=== PATIENT | male | born 1975 | race Hispanic/Latino ===

== ENCOUNTER 2017-05-10 02:19 | Observation (INO) | payer MEDICAID ==
[~2017-05-10] VITALS: Ht 177.8 cm; Wt 88.5 kg
[2017-05-10] MEDS ORDERED: ASPIRIN 325 MG TABLET ONE ×2 (02:38→08:12)
[2017-05-10 02:43] LABS: BASOPHILS % (AUTO) 0.6 % (0.0-5.0); EOSINOPHILS % (AUTO) 0.1 % (0.0-8.0); HEMATOCRIT 48.7 % (42-54); MEAN CORPUSCULAR HEMOGLOBIN 30.7 pg (27.0-33.0); MEAN CORPUSCULAR HGB CONC 33.5 g/dL (32.0-36.0); MEAN CORPUSCULAR VOLUME 91.6 fL (79-99); MONOCYTES % (AUTO) 4.8 % (3.0-13.0); NEUTROPHILS % (AUTO) 72.5 % (40.0-77.0); NUCLEATED RED BLOOD CELLS 0.1 % (0.0-0.19); PLATELET COUNT (AUTO) 269 K/uL (130-400); RED BLOOD CELL COUNT(AUTO) 5.31 MIL/uL (4.50-6.20); RED CELL DISTRIBUTION WIDTH 13.4 % (11.0-15.5); WHITE BLOOD COUNT (AUTO) 11.4 K/uL (4.8-10.8)
[2017-05-10 02:53] LABS: INR 1.01 (0.85-1.15); PARTIAL THROMBOPLASTIN TIME 27.9 SEC (26.3-35.5); PROTHROMBIN TIME 10.6 SEC (9.6-11.6)
[2017-05-10] MEDS ORDERED: NITROGLYCERIN 0.4 MG SL TAB SL ONE (03:02)
[2017-05-10] MEDS ORDERED: ONDANSETRON HCL 4 MG/2 ML VIAL ONE (03:02)
[2017-05-10] MEDS ORDERED: MORPHINE SULFATE 4 MG/1ML SYG ONE ×2 (03:03→05:01)
[2017-05-10 03:08] LABS: CREATININE 0.9 mg/dL (0.5-1.5); POTASSIUM 3.4 mmol/L (3.5-5.1)
[2017-05-10] MEDS ORDERED: ALBUTEROL SULFATE 0.083% 2.5 MG/3 ML INH IH ONE (03:20)
[2017-05-10 03:35] LABS: ALBUMIN 3.8 g/dL (3.5-5.0); BILIRUBIN,TOTAL 0.5 mg/dL (0.2-1.0); CREATINE KINASE MB 0.9 ng/mL (0.5-3.6); TOTAL PROTEIN, SERUM 7.6 g/dL (6.0-8.3)
[2017-05-10] MEDS ORDERED: POTASSIUM CHLORIDE 20MEQ/100ML 100 ML IV PRN (07:00)
[2017-05-10] MEDS ORDERED: LIDOCAINE HCL-MPF 1% 2ML VIAL IVP PRN (07:00)
[2017-05-10] MEDS: NITROGLYCERIN 1GM/1 INCH PACKET TD SCH ×3 (07:00→22:30)
[2017-05-10] MEDS ORDERED: POTASSIUM CHLORIDE 10% ELIXIR 20 MEQ/15 ML UDCUP PO PRN (07:00)
[2017-05-10] MEDS ORDERED: ACETAMINOPHEN 325 MG TAB PO PRN (07:00)
[2017-05-10] MEDS ORDERED: ONDANSETRON HCL 4 MG/2 ML VIAL IVP PRN (07:00)
[2017-05-10] MEDS ORDERED: IPRATROPIUM/ALBUTEROL SULFATE 3 ML SOLUTION IH PRN (07:00)
[2017-05-10] MEDS ORDERED: NITROGLYCERIN 1GM/1 INCH PACKET TD ONE (08:12)
[2017-05-10] MEDS: ASPIRIN 325 MG TABLET PO SCH (09:00)
[2017-05-10] MEDS: FAMOTIDINE 20MG TAB 20 MG TAB PO SCH ×2 (09:00→19:33)
[2017-05-10] MEDS ORDERED: MORPHINE SULFATE 2 MG/ML 1ML SYG ONE (10:57)
[2017-05-10 11:56] LABS: CREATINE KINASE MB 0.6 ng/mL (0.5-3.6); CREATINE KINASE, TOTAL 74 U/L (21-232); MYOGLOBIN 42 ng/mL (10-92); TROPONIN I < 0.04 ng/mL (0.00-0.06)
[2017-05-10] MEDS ORDERED: LORAZEPAM 0.5 MG TABLET PO PRN (13:15)
[2017-05-10 16:00] VITALS: BP 95/56
[2017-05-10 16:10] LABS: CHOLESTEROL 161 mg/dL (<200); HDL CHOLESTEROL 37 mg/dL (29-71); LDL DIRECT 111 mg/dL (0-99); TRIGLYCERIDES 218 mg/dL (30-200)
[2017-05-10] MEDS: MORPHINE SULFATE 2 MG/ML 1ML SYG IVP PRN ×2 (16:33→22:31)
[2017-05-10] MEDS ORDERED: SODIUM CHLORIDE 0.9% 10 ML VIAL IVP PRN (16:45)
[2017-05-10 19:00] VITALS: BP 109/64
[2017-05-10] MEDS: POTASSIUM CHLORIDE 20 MEQ ERTAB PO PRN ×2 (19:34→22:48)
[2017-05-11] VITALS: BP 100/54
[2017-05-11 04:00] VITALS: BP 97/49
[2017-05-11] MEDS: MORPHINE SULFATE 2 MG/ML 1ML SYG IVP PRN ×2 (04:50→10:06)
[2017-05-11 06:10] VITALS: BP 80/54
[2017-05-11 06:29] VITALS: BP 106/53
[2017-05-11] MEDS: NITROGLYCERIN 1GM/1 INCH PACKET TD SCH (06:31)
[2017-05-11 08:00] VITALS: BP 104/54
[2017-05-11] MEDS: FAMOTIDINE 20MG TAB 20 MG TAB PO SCH (10:06)
[2017-05-11] MEDS: ASPIRIN 325 MG TABLET PO SCH (10:06)
== END 2017-05-11 11:30 | disposition home or self-care (01) ==
LOC: EDH 02:19 → EDHIP 02:20 → 3BH 14:57
PROVIDERS: ADMIT Family Medicine; ATTEND Family Medicine
DX: I25.110 Atherosclerotic heart disease of native coronary artery with unstable angina pectoris (principal); I13.0 Hypertensive heart and chronic kidney disease with heart failure and stage 1 through stage 4 chronic kidney disease, or unspecified chronic kidney disease; I50.9 Heart failure, unspecified; N18.9 Chronic kidney disease, unspecified; E78.5 Hyperlipidemia, unspecified; G89.4 Chronic pain syndrome; I25.2 Old myocardial infarction; I42.9 Cardiomyopathy, unspecified; J96.10 Chronic respiratory failure, unspecified whether with hypoxia or hypercapnia; Z99.81 Dependence on supplemental oxygen; F17.210 Nicotine dependence, cigarettes, uncomplicated
CPT/HCPCS: 36415 ×2; 71010 ×2; 80048; 80053; 80061; 82550 ×2; 82553 ×2; 83874 ×2; 84484 ×3; 85025 ×2; 85610; 85730; 93005 ×2; 93306; 94640; 94664; 96374; 96376 ×2; 99285; 99291; G0378 ×33; J2270 ×2; J2405

== ENCOUNTER 2018-03-18 08:44 | Emergency (ER) | payer MEDICAID ==
[2018-03-18] MEDS ORDERED: LIDOCAINE HCL MPF 1% 5ML VIAL ONE (09:06)
[2018-03-18] MEDS ORDERED: KETOROLAC TROMETHAMINE 30MG/ML ONE (09:11)
== END 2018-03-18 09:38 | disposition home or self-care (01) ==
LOC: EDH 08:44
DX: K02.9 Dental caries, unspecified (principal); I25.10 Atherosclerotic heart disease of native coronary artery without angina pectoris; I50.9 Heart failure, unspecified; Z72.0 Tobacco use
CPT/HCPCS: 64400; 96372; 99284; J1885; J3490

== ENCOUNTER 2018-12-17 23:14 | Emergency (ER) | payer MEDICAID ==
[2018-12-17] MEDS ORDERED: SULFAMETHOX-TMP DS 800/160 TAB ONE (23:53)
[2018-12-17] MEDS ORDERED: KETOROLAC TROMETHAMINE 60 MG/2 ML VIAL ONE (23:53)
== END 2018-12-18 00:18 | disposition home or self-care (01) ==
LOC: EDH 23:14
DX: S81.831A Puncture wound without foreign body, right lower leg, initial encounter (principal); I50.9 Heart failure, unspecified; I25.10 Atherosclerotic heart disease of native coronary artery without angina pectoris; Z72.0 Tobacco use; W45.8XXA Other foreign body or object entering through skin, initial encounter; Y93.39 Activity, other involving climbing, rappelling and jumping off; Y92.098 Other place in other non-institutional residence as the place of occurrence of the external cause; Y99.8 Other external cause status
CPT/HCPCS: 73590; 96372; 99284; J1885

== ENCOUNTER 2018-12-22 21:13 | Emergency (ER) | payer MEDICAID ==
[2018-12-22 22:33] LABS: BASOPHILS % (AUTO) 0.5 % (0.0-5.0); EOSINOPHILS % (AUTO) 0.7 % (0.0-8.0); HEMATOCRIT 47.1 % (42-54); LYMPHOCYTES % (AUTO) 22.2 % (21.0-51.0); MEAN CORPUSCULAR HEMOGLOBIN 31.5 pg (27.0-33.0); MEAN CORPUSCULAR HGB CONC 33.9 g/dL (32.0-36.0); MEAN CORPUSCULAR VOLUME 92.7 fL (79-99); MONOCYTES % (AUTO) 7.5 % (3.0-13.0); NEUTROPHILS % (AUTO) 69.1 % (40.0-77.0); NUCLEATED RED BLOOD CELLS 0.1 % (0.0-0.19); PLATELET COUNT (AUTO) 246 K/uL (130-400); RED BLOOD CELL COUNT(AUTO) 5.09 MIL/uL (4.50-6.20); RED CELL DISTRIBUTION WIDTH 12.8 % (11.0-15.5); WHITE BLOOD COUNT (AUTO) 10.7 K/uL (4.8-10.8)
[2018-12-22 22:48] LABS: CREATININE 1.2 mg/dL (0.5-1.5); POTASSIUM 3.8 mmol/L (3.5-5.1)
[2018-12-22] MEDS ORDERED: KETOROLAC TROMETHAMINE 30MG/ML ONE (23:00)
[2018-12-22] MEDS ORDERED: CEFTRIAXONE SODIUM 1 GM ONE (23:00)
== END 2018-12-22 23:54 | disposition home or self-care (01) ==
LOC: EDH 21:13
DX: L03.115 Cellulitis of right lower limb (principal); I25.10 Atherosclerotic heart disease of native coronary artery without angina pectoris; I50.9 Heart failure, unspecified; Z72.0 Tobacco use
CPT/HCPCS: 36415; 73590; 80048; 83605; 85025; 87040; 96374; 96375; 99285; J0696; J1885

== ENCOUNTER 2019-02-08 18:10 | Emergency (ER) | payer MEDICAID ==
[2019-02-08] MEDS ORDERED: KETOROLAC TROMETHAMINE 15MG/ML ONE (18:27)
[2019-02-08] MEDS ORDERED: CLINDAMYCIN 600 MG/D5% WATER 50 ML IV ONE (18:27)
[2019-02-08 18:51] LABS: BASOPHILS % (AUTO) 0.6 % (0.0-5.0); EOSINOPHILS % (AUTO) 1.4 % (0.0-8.0); HEMATOCRIT 45.6 % (42-54); LYMPHOCYTES % (AUTO) 20.1 % (21.0-51.0); MEAN CORPUSCULAR HEMOGLOBIN 31.1 pg (27.0-33.0); MEAN CORPUSCULAR HGB CONC 34.2 g/dL (32.0-36.0); MONOCYTES % (AUTO) 5.3 % (3.0-13.0); NEUTROPHILS % (AUTO) 72.6 % (40.0-77.0); PLATELET COUNT (AUTO) 212 K/uL (130-400); RED BLOOD CELL COUNT(AUTO) 5.01 MIL/uL (4.50-6.20); WHITE BLOOD COUNT (AUTO) 11.2 K/uL (4.8-10.8)
[2019-02-08 19:06] LABS: CREATININE 1.1 mg/dL (0.5-1.5); POTASSIUM 3.6 mmol/L (3.5-5.1)
[2019-02-08 19:10] LABS: ALBUMIN 3.4 g/dL (3.5-5.0); BILIRUBIN,TOTAL 0.3 mg/dL (0.2-1.0); CRP QUANTITATIVE 30.5 mg/L (0.00-9.0); TOTAL PROTEIN, SERUM 6.7 g/dL (6.0-8.3)
[2019-02-08 19:58] LABS: ERYTHROCYTE SEDIMENTATION RATE 3 MM/HR (0-15)
== END 2019-02-08 20:10 | disposition home or self-care (01) ==
LOC: EDH 18:10
DX: M70.22 Olecranon bursitis, left elbow (principal); I25.10 Atherosclerotic heart disease of native coronary artery without angina pectoris; I50.9 Heart failure, unspecified; Z72.0 Tobacco use; Z88.8 Allergy status to other drugs, medicaments and biological substances
CPT/HCPCS: 36415; 73070; 80053; 84550; 85025; 85651; 86140; 96365; 96375; 99285; J1885; J3490

== ENCOUNTER 2019-04-24 09:55 | Emergency (ER) | payer MEDICAID ==
[2019-04-24] MEDS ORDERED: FLUORESCEIN SODIUM 1 STRIP STRIP ONE (10:01)
[2019-04-24] MEDS ORDERED: TETRACAINE HCL 0.5% 4 ML OPHTH SOLN ONE (10:02)
[2019-04-24] MEDS ORDERED: NA BORATE/BORIC AC/H2O/NACL 120 ML OPHTH IRRIG SOLN ONE (10:02)
[2019-04-24] MEDS ORDERED: ERYTHROMYCIN BASE 0.5% OPHTH OINT 1 GM TUBE ONE (10:40)
[2019-04-24] MEDS ORDERED: TRAMADOL HCL 50 MG TABLET ONE (10:41)
== END 2019-04-24 10:49 | disposition home or self-care (01) ==
LOC: EDH 09:55
DX: S05.02XA Injury of conjunctiva and corneal abrasion without foreign body, left eye, initial encounter (principal); I25.810 Atherosclerosis of coronary artery bypass graft(s) without angina pectoris; I50.9 Heart failure, unspecified; Z72.0 Tobacco use; X58.XXXA Exposure to other specified factors, initial encounter; Y93.89 Activity, other specified; Y92.89 Other specified places as the place of occurrence of the external cause; Y99.8 Other external cause status

== ENCOUNTER 2019-08-07 23:57 | Emergency (ER) | payer MEDICAID ==
[2019-08-08 00:37] LABS: CREATININE 1.2 mg/dL (0.5-1.5); POTASSIUM 3.2 mmol/L (3.5-5.1)
[2019-08-08 00:39] LABS: INR 0.97 (0.85-1.15); PARTIAL THROMBOPLASTIN TIME 27.5 SEC (26.3-35.5); PROTHROMBIN TIME 10.5 SEC (9.6-11.6)
[2019-08-08 00:41] LABS: ALBUMIN 3.4 g/dL (3.5-5.0); BILIRUBIN,TOTAL 0.3 mg/dL (0.2-1.0); TOTAL PROTEIN, SERUM 6.9 g/dL (6.0-8.3)
[2019-08-08 00:49] LABS: BASOPHILS % (AUTO) 0.3 % (0.0-5.0); EOSINOPHILS % (AUTO) 0.5 % (0.0-8.0); HEMATOCRIT 43.2 % (42-54); LYMPHOCYTES % (AUTO) 25.8 % (21.0-51.0); MEAN CORPUSCULAR HEMOGLOBIN 31.4 pg (27.0-33.0); MEAN CORPUSCULAR HGB CONC 34.7 g/dL (32.0-36.0); MEAN CORPUSCULAR VOLUME 90.6 fL (79-99); MONOCYTES % (AUTO) 4.6 % (3.0-13.0); NEUTROPHILS % (AUTO) 68.6 % (40.0-77.0); PLATELET COUNT (AUTO) 224 K/uL (130-400); RED BLOOD CELL COUNT(AUTO) 4.77 MIL/uL (4.50-6.20); WHITE BLOOD COUNT (AUTO) 9.4 K/uL (4.8-10.8)
[2019-08-08 00:55] LABS: ABG BASE EXCESS -3.1 mmol/L (-2.0-3.0); ABG HCO3 21.6 mmol/L (21.0-28.0); ABG OXYGEN SATURATION 94.2 % (95.0-99.0); ABG PCO2 38 mmHg (35-48)
[2019-08-08 00:56] LABS: B-TYPE NATRIURETIC PEPTIDE 12 pg/mL (0-100)
[2019-08-08] MEDS ORDERED: ACETAMINOPHEN EXTRA STRENGTH 500 MG TABLET ONE (01:34)
[2019-08-08] MEDS ORDERED: POTASSIUM CHLORIDE 20 MEQ ERTAB PO ONE (01:34)
== END 2019-08-08 04:05 | disposition home or self-care (01) ==
LOC: EDH 23:57
DX: M54.5 Low back pain (principal); R07.89 Other chest pain; R09.02 Hypoxemia; I50.9 Heart failure, unspecified; I25.10 Atherosclerotic heart disease of native coronary artery without angina pectoris; Q24.9 Congenital malformation of heart, unspecified; Z72.0 Tobacco use
CPT/HCPCS: 36415; 36600; 71046; 80053; 82550; 82803; 83690; 83880; 84484; 85025; 85610; 85730; 93005

== ENCOUNTER 2019-09-22 16:34 | Emergency (ER) | payer MEDICAID ==
[2019-09-22] MEDS ORDERED: ONDANSETRON ODT 4 MG TAB ONE (17:04)
[2019-09-22] MEDS ORDERED: HYDROCODONE/ACETAMINOPHEN 10/325 MG TAB ONE (17:04)
== END 2019-09-22 18:21 | disposition home or self-care (01) ==
LOC: EDH 16:34
DX: S53.402A Unspecified sprain of left elbow, initial encounter (principal); S40.022A Contusion of left upper arm, initial encounter; I25.10 Atherosclerotic heart disease of native coronary artery without angina pectoris; I50.9 Heart failure, unspecified; Z88.8 Allergy status to other drugs, medicaments and biological substances; Z72.0 Tobacco use; W13.2XXA Fall from, out of or through roof, initial encounter; Y93.89 Activity, other specified; Y92.098 Other place in other non-institutional residence as the place of occurrence of the external cause; Y99.8 Other external cause status
CPT/HCPCS: 71045; 73060; 73070; 73090; 73130

== ENCOUNTER 2019-10-05 10:47 | Emergency (ER) | payer MEDICAID ==
[2019-10-05 11:32] LABS: BASOPHILS % (AUTO) 0.3 % (0.0-5.0); EOSINOPHILS % (AUTO) 0.5 % (0.0-8.0); HEMATOCRIT 49.9 % (42-54); LYMPHOCYTES % (AUTO) 10.5 % (21.0-51.0); MEAN CORPUSCULAR HEMOGLOBIN 31.1 pg (27.0-33.0); MEAN CORPUSCULAR HGB CONC 33.9 g/dL (32.0-36.0); MEAN CORPUSCULAR VOLUME 91.7 fL (79-99); MONOCYTES % (AUTO) 2.9 % (3.0-13.0); NEUTROPHILS % (AUTO) 85.5 % (40.0-77.0); PLATELET COUNT (AUTO) 243 K/uL (130-400); RED BLOOD CELL COUNT(AUTO) 5.44 MIL/uL (4.50-6.20); RED CELL DISTRIBUTION WIDTH 12.7 % (11.0-15.5); WHITE BLOOD COUNT (AUTO) 14.3 K/uL (4.8-10.8)
[2019-10-05 11:47] LABS: CREATININE 1.1 mg/dL (0.5-1.5)
[2019-10-05 11:51] LABS: ALBUMIN 3.7 g/dL (3.5-5.0); BILIRUBIN,TOTAL 0.5 mg/dL (0.2-1.0); TOTAL PROTEIN, SERUM 7.5 g/dL (6.0-8.3)
[2019-10-05 11:53] LABS: ABG BASE EXCESS -1.4 mmol/L (-2.0-3.0); ABG HCO3 22.3 mmol/L (21.0-28.0); ABG OXYGEN SATURATION 95.5 % (95.0-99.0); ABG PCO2 35 mmHg (35-48)
[2019-10-05 12:21] LABS: B-TYPE NATRIURETIC PEPTIDE 20 pg/mL (0-100)
[2019-10-05] MEDS ORDERED: ACETAMINOPHEN EXTRA STRENGTH 500 MG TABLET ONE (13:12)
== END 2019-10-05 14:35 | disposition left against medical advice (07) ==
LOC: EDH 10:47
DX: G89.29 Other chronic pain (principal); M79.602 Pain in left arm; I24.8 Other forms of acute ischemic heart disease; I25.10 Atherosclerotic heart disease of native coronary artery without angina pectoris; J44.9 Chronic obstructive pulmonary disease, unspecified; Z88.8 Allergy status to other drugs, medicaments and biological substances
CPT/HCPCS: 36415; 36600; 71045; 80053; 82550; 82803; 83880; 84484; 85025; 93005

== ENCOUNTER 2020-05-06 15:48 | Emergency (ER) | payer MEDICAID ==
[2020-05-06] MEDS ORDERED: HYDROCODONE/ACETAMINOPHEN 10/325 MG TAB ONE (16:03)
== END 2020-05-06 17:46 | disposition home or self-care (01) ==
LOC: EDH 15:48
DX: M54.5 Low back pain (principal); I25.10 Atherosclerotic heart disease of native coronary artery without angina pectoris; I50.9 Heart failure, unspecified; Z72.0 Tobacco use; Z88.8 Allergy status to other drugs, medicaments and biological substances
CPT/HCPCS: 72100

== ENCOUNTER 2021-02-03 09:09 | Emergency (ER) | payer MEDICAID ==
[~2021-02-03] VITALS: Ht 175.3 cm; Wt 77.1 kg
[2021-02-03 09:48] LABS: BASOPHILS % (AUTO) 0.3 % (0.0-5.0); EOSINOPHILS % (AUTO) 0.4 % (0.0-8.0); HEMATOCRIT 44.5 % (42-54); LYMPHOCYTES % (AUTO) 13.4 % (21.0-51.0); MEAN CORPUSCULAR HGB CONC 34.4 g/dL (32.0-36.0); MEAN CORPUSCULAR VOLUME 90.3 fL (79-99); MONOCYTES % (AUTO) 4.9 % (3.0-13.0); NEUTROPHILS % (AUTO) 80.6 % (40.0-77.0); PLATELET COUNT (AUTO) 239 K/uL (130-400); RED BLOOD CELL COUNT(AUTO) 4.93 MIL/uL (4.50-6.20); RED CELL DISTRIBUTION WIDTH 12.7 % (11.0-15.5); WHITE BLOOD COUNT (AUTO) 14.6 K/uL (4.8-10.8)
[2021-02-03 09:59] LABS: ABG BASE EXCESS -1.7 mmol/L (-2.0-3.0); ABG OXYGEN SATURATION 88.6 % (95.0-99.0); ABG PCO2 35 mmHg (35-48)
[2021-02-03] MEDS ORDERED: ACETAMINOPHEN 500 MG TABLET ONE (10:03)
[2021-02-03 10:28] LABS: ALBUMIN 3.1 g/dL (3.5-5.0); B-TYPE NATRIURETIC PEPTIDE 25 pg/mL (0-100); BILIRUBIN,TOTAL 0.4 mg/dL (0.2-1.0); CREATININE 0.9 mg/dL (0.5-1.5); POTASSIUM 3.2 mmol/L (3.5-5.1); TOTAL PROTEIN, SERUM 7.2 g/dL (6.0-8.3)
[2021-02-03 11:00] VITALS: BP 106/65
== END 2021-02-03 11:24 | disposition left against medical advice (07) ==
LOC: EDH 09:09
DX: I42.9 Cardiomyopathy, unspecified (principal); R09.02 Hypoxemia; R51.9 Headache, unspecified; Z20.822 Contact with and (suspected) exposure to COVID-19
CPT/HCPCS: 36415; 36600; 71045; 80053; 82550; 82803; 83880; 84484; 85025; 87040 ×2; 87635; 93005; 99285; C9803

== ENCOUNTER 2022-01-13 20:49 | Emergency (ER) | payer MEDICAID ==
[~2022-01-13] VITALS: Ht 177.8 cm; Wt 81.2 kg
[2022-01-13] MEDS ORDERED: MORPHINE 4 MG SYG ONE (21:05)
[2022-01-13 21:29] LABS: BASOPHILS % (AUTO) 0.3 % (0.0-5.0); EOSINOPHILS % (AUTO) 0.1 % (0.0-8.0); HEMATOCRIT 46.7 % (42-54); LYMPHOCYTES % (AUTO) 9.6 % (21.0-51.0); MEAN CORPUSCULAR HEMOGLOBIN 30.5 pg (27.0-33.0); MEAN CORPUSCULAR HGB CONC 34.3 g/dL (32.0-36.0); MEAN CORPUSCULAR VOLUME 89.1 fL (79-99); MONOCYTES % (AUTO) 4.9 % (3.0-13.0); NEUTROPHILS % (AUTO) 84.6 % (40.0-77.0); PLATELET COUNT (AUTO) 242 K/uL (130-400); RED BLOOD CELL COUNT(AUTO) 5.24 MIL/uL (4.50-6.20); RED CELL DISTRIBUTION WIDTH 12.5 % (11.0-15.5); WHITE BLOOD COUNT (AUTO) 18.7 K/uL (4.8-10.8)
[2022-01-13 21:30] LABS: APPEARANCE,URINE CLOUDY (CLEAR); BILIRUBIN,URINE SMALL (NEGATIVE); COLOR,URINE YELLOW (YELLOW); GLUCOSE, URINE (UA) NEGATIVE (NEGATIVE); KETONES,URINE NEGATIVE (NEGATIVE); LEUKOCYTE ESTERASE ,URINE NEGATIVE (NEGATIVE); NITRATE,URINE NEGATIVE (NEGATIVE); OCCULT BLOOD,URINE LARGE (NEGATIVE); PROTEIN,URINE 100 mg/dL (NEGATIVE); UROBILINOGEN,URINE 0.2 mg/dL (0.2-1.0)
[2022-01-13] MEDS ORDERED: ONDANSETRON 4MG INJ IVP ONE (21:30)
[2022-01-13] MEDS ORDERED: 0.9%NACL 1000ML 1,000 ML IV SCH (21:30)
[2022-01-13] MEDS ORDERED: MORPHINE 4 MG SYG IVP ONE (21:30)
[2022-01-13] MEDS ORDERED: KETOROLAC 15MG/ML VIAL (15MG/ML) IV ONE (21:30)
[2022-01-13 21:38] LABS: CREATININE 1.1 mg/dL (0.5-1.5); POTASSIUM 3.7 mmol/L (3.5-5.1)
[2022-01-13 21:43] LABS: TOTAL PROTEIN, SERUM 7.6 g/dL (6.0-8.3)
[2022-01-13 21:47] LABS: BACTERIA,URINE Few /HPF (None Seen); CALCIUM OXALATE CRYSTALS,UR Few /LPF (None Seen); WBC,URINE 0-1 /HPF (0-1); YEAST,URINE BUDDING Few /HPF (None Seen)
[2022-01-13 22:27] VITALS: BP 115/65
== END 2022-01-13 22:50 | disposition left against medical advice (07) ==
LOC: EDH 20:49
DX: N20.0 Calculus of kidney (principal); D72.829 Elevated white blood cell count, unspecified; N13.9 Obstructive and reflux uropathy, unspecified; Z79.1 Long term (current) use of non-steroidal anti-inflammatories (NSAID)
CPT/HCPCS: 99284; 74176; 96374; 96375; 96361; 80053; 85025; 81001; 36415; J7030; J2405; J2270; J1885

== ENCOUNTER 2022-01-14 09:49 | Inpatient (IN) | payer MEDICAID ==
[~2022-01-14] VITALS: Ht 142.2 cm; Wt 68.8 kg
[2022-01-14] MEDS ORDERED: ONDANSETRON 4MG INJ IVP PRN (11:00)
[2022-01-14] MEDS ORDERED: ACETAMINOPHEN 325 MG TAB PO PRN (11:00)
[2022-01-14 11:17] LABS: BASOPHILS % (AUTO) 0.4 % (0.0-5.0); EOSINOPHILS % (AUTO) 1.6 % (0.0-8.0); HEMATOCRIT 42.8 % (42-54); LYMPHOCYTES % (AUTO) 24.8 % (21.0-51.0); MEAN CORPUSCULAR HEMOGLOBIN 30.3 pg (27.0-33.0); MEAN CORPUSCULAR HGB CONC 33.6 g/dL (32.0-36.0); MEAN CORPUSCULAR VOLUME 89.9 fL (79-99); MONOCYTES % (AUTO) 6.4 % (3.0-13.0); NEUTROPHILS % (AUTO) 66.5 % (40.0-77.0); PLATELET COUNT (AUTO) 194 K/uL (130-400); RED BLOOD CELL COUNT(AUTO) 4.76 MIL/uL (4.50-6.20); RED CELL DISTRIBUTION WIDTH 12.6 % (11.0-15.5); WHITE BLOOD COUNT (AUTO) 7.5 K/uL (4.8-10.8)
[2022-01-14 11:28] LABS: INR 0.95 (0.85-1.15); PROTHROMBIN TIME 10.4 SEC (9.6-11.6)
[2022-01-14 11:30] LABS: PARTIAL THROMBOPLASTIN TIME 28.5 SEC (26.3-35.5)
[2022-01-14 11:37] LABS: ALBUMIN 2.9 g/dL (3.5-5.0); CREATININE 0.8 mg/dL (0.5-1.5); CRP QUANTITATIVE 9.5 mg/L (0.00-9.0); TOTAL PROTEIN, SERUM 5.9 g/dL (6.0-8.3)
[2022-01-14 11:41] LABS: B-TYPE NATRIURETIC PEPTIDE 71 pg/mL (0-100)
[2022-01-14 11:47] LABS: AMPHET/METH SCREEN,URINE NEGATIVE (NEGATIVE); BARBITURATE SCREEN, URINE NEGATIVE (NEGATIVE); BENZODIAZEPINES SCREEN,URINE NEGATIVE (NEGATIVE)
[2022-01-14 11:48] LABS: APPEARANCE,URINE CLEAR (CLEAR); BILIRUBIN,URINE NEGATIVE (NEGATIVE); CANNABINOID SCREEN,URINE NEGATIVE (NEGATIVE); COCAINE SCREEN,URINE POSITIVE (NEGATIVE); COLOR,URINE YELLOW (YELLOW); GLUCOSE, URINE (UA) NEGATIVE (NEGATIVE); KETONES,URINE NEGATIVE (NEGATIVE); LEUKOCYTE ESTERASE ,URINE NEGATIVE (NEGATIVE); NITRATE,URINE NEGATIVE (NEGATIVE); OCCULT BLOOD,URINE MODERATE (NEGATIVE); PHENCYCLIDINE SCREEN,URINE NEGATIVE (NEGATIVE); PROTEIN,URINE NEGATIVE (NEGATIVE); UROBILINOGEN,URINE 0.2 mg/dL (0.2-1.0)
[2022-01-14 11:50] LABS: BACTERIA,URINE Rare /HPF (None Seen); SQUAMOUS EPITHELIAL CELL,UR Rare /HPF (0-2); WBC,URINE 0-1 /HPF (0-1)
[2022-01-14] MEDS ORDERED: KCL 20 MEQ ERTAB PO SCH (12:00)
[2022-01-14] MEDS: CEFTRIAXONE 1G VIAL IVP SCH ×2 (12:03→23:36)
[2022-01-14] MEDS: PANTOPRAZOLE 40 MG TAB DR PO SCH (12:30)
[2022-01-14] MEDS: MORPHINE 2 MG SYG IVP PRN ×2 (12:30→18:49)
[2022-01-14 12:41] LABS: ERYTHROCYTE SEDIMENTATION RATE 25 MM/HR (0-15)
[2022-01-14 14:53] VITALS: BP 90/52
[2022-01-15] VITALS (7 sets, daily range): BP systolic 100–165; BP diastolic 49–67
[2022-01-15] MEDS: MORPHINE 2 MG SYG IVP PRN ×2 (03:41→10:00)
[2022-01-15 05:26] LABS: BASOPHILS % (AUTO) 0.3 % (0.0-5.0); EOSINOPHILS % (AUTO) 1.6 % (0.0-8.0); HEMATOCRIT 42.4 % (42-54); LYMPHOCYTES % (AUTO) 32.1 % (21.0-51.0); MEAN CORPUSCULAR HEMOGLOBIN 30.6 pg (27.0-33.0); MEAN CORPUSCULAR VOLUME 90.2 fL (79-99); MONOCYTES % (AUTO) 5.6 % (3.0-13.0); NEUTROPHILS % (AUTO) 60.2 % (40.0-77.0); PLATELET COUNT (AUTO) 208 K/uL (130-400); RED CELL DISTRIBUTION WIDTH 12.7 % (11.0-15.5); WHITE BLOOD COUNT (AUTO) 9.4 K/uL (4.8-10.8)
[2022-01-15 05:51] LABS: CREATININE 0.8 mg/dL (0.5-1.5); MAGNESIUM 1.8 mg/dL (1.80-2.40); POTASSIUM 3.8 mmol/L (3.5-5.1); TOTAL PROTEIN, SERUM 6.2 g/dL (6.0-8.3)
[2022-01-15] MEDS: PANTOPRAZOLE 40 MG TAB DR PO SCH (06:41)
[2022-01-15] MEDS: CEFTRIAXONE 1G VIAL IVP SCH ×2 (11:08→21:44)
[2022-01-15] MEDS: 0.9%NACL 1000ML 1,000 ML IV SCH ×2 (15:54→22:21)
[2022-01-15] MEDS ORDERED: TAMSULOSIN HCL 0.4 MG CAP.ER.24H ONE (16:07)
[2022-01-15] MEDS: TAMSULOSIN HCL 0.4 MG CAP.ER.24H PO SCH (16:25)
[2022-01-15] MEDS: HYDROMORPHONE 1 MG INJ IVP PRN ×2 (16:26→21:44)
[2022-01-16] VITALS: BP 108/56
[2022-01-16] MEDS: 0.9%NACL 1000ML 1,000 ML IV SCH ×3 (01:55→13:24)
[2022-01-16] MEDS: HYDROMORPHONE 1 MG INJ IVP PRN ×4 (03:51→21:59)
[2022-01-16 04:55] VITALS: BP 116/58
[2022-01-16] MEDS: PANTOPRAZOLE 40 MG TAB DR PO SCH (06:16)
[2022-01-16 06:21] LABS: HEMATOCRIT 41.2 % (42-54); MEAN CORPUSCULAR HEMOGLOBIN 30.3 pg (27.0-33.0); MEAN CORPUSCULAR HGB CONC 34.2 g/dL (32.0-36.0); MEAN CORPUSCULAR VOLUME 88.4 fL (79-99); RED BLOOD CELL COUNT(AUTO) 4.66 MIL/uL (4.50-6.20); RED CELL DISTRIBUTION WIDTH 12.3 % (11.0-15.5); WHITE BLOOD COUNT (AUTO) 9.2 K/uL (4.8-10.8)
[2022-01-16 06:39] LABS: CREATININE 0.9 mg/dL (0.5-1.5); POTASSIUM 3.9 mmol/L (3.5-5.1)
[2022-01-16 08:00] VITALS: BP 104/50
[2022-01-16] MEDS ORDERED: IOHEXOL 350 MG/ML 100ML INFUS..BTL IV ONE (08:23)
[2022-01-16] MEDS ORDERED: TAMSULOSIN HCL 0.4 MG CAP.ER.24H PO SCH (09:00)
[2022-01-16] MEDS ORDERED: LACTULOSE 20 GM/30 ML UDCUP PO PRN (10:00)
[2022-01-16] MEDS: CEFTRIAXONE 1G VIAL IVP SCH (10:29)
[2022-01-16] MEDS: TAMSULOSIN HCL 0.4 MG CAP.ER.24H PO SCH (10:29)
[2022-01-16] MEDS ORDERED: PEG 3350/NA SULF,BICARB,CL/KCL 4000 ML SOLN PO SCH (11:00)
[2022-01-16 16:00] VITALS: BP 99/56
[2022-01-16 20:00] VITALS: BP 102/50
[2022-01-17] VITALS (13 sets, daily range): BP systolic 90–143; BP diastolic 52–99
[2022-01-17] MEDS: 0.9%NACL 1000ML 1,000 ML IV SCH ×4 (00:08→22:41)
[2022-01-17] MEDS: CEFTRIAXONE 1G VIAL IVP SCH ×3 (00:08→22:41)
[2022-01-17] MEDS: HYDROMORPHONE 1 MG INJ IVP PRN ×5 (04:25→22:42)
[2022-01-17 05:56] LABS: HEMATOCRIT 44.7 % (42-54); MEAN CORPUSCULAR HEMOGLOBIN 30.5 pg (27.0-33.0); MEAN CORPUSCULAR HGB CONC 33.3 g/dL (32.0-36.0); MEAN CORPUSCULAR VOLUME 91.4 fL (79-99); RED BLOOD CELL COUNT(AUTO) 4.89 MIL/uL (4.50-6.20); RED CELL DISTRIBUTION WIDTH 12.3 % (11.0-15.5); WHITE BLOOD COUNT (AUTO) 8.1 K/uL (4.8-10.8)
[2022-01-17 06:28] LABS: CREATININE 0.8 mg/dL (0.5-1.5); POTASSIUM 4.4 mmol/L (3.5-5.1)
[2022-01-17] MEDS: PANTOPRAZOLE 40 MG TAB DR PO SCH (07:30)
[2022-01-17] MEDS: TAMSULOSIN HCL 0.4 MG CAP.ER.24H PO SCH (09:00)
[2022-01-17] MEDS ORDERED: IOHEXOL 350 MG/ML 100ML INFUS..BTL IV ONE (11:42)
[2022-01-17] MEDS ORDERED: LIDOCAINE HCL 1% 20 ML VIAL ONE (11:42)
[2022-01-17] MEDS ORDERED: MIDAZOLAM HCL 1 MG/ML 2ML VIAL ONE (11:59)
[2022-01-17] MEDS ORDERED: FENTANYL CITRATE PF 50 MCG/1 ML 2ML VIAL ONE (12:00)
[2022-01-18 04:19] VITALS: BP 93/58
[2022-01-18] MEDS: HYDROMORPHONE 1 MG INJ IVP PRN (06:03)
[2022-01-18] MEDS: 0.9%NACL 1000ML 1,000 ML IV SCH (06:09)
[2022-01-18] MEDS: TAMSULOSIN HCL 0.4 MG CAP.ER.24H PO SCH (07:45)
[2022-01-18] MEDS: PANTOPRAZOLE 40 MG TAB DR PO SCH (07:45)
[2022-01-18 08:00] VITALS: BP 100/63
[2022-01-18 08:24] LABS: HEMATOCRIT 42.7 % (42-54); MEAN CORPUSCULAR HEMOGLOBIN 30.5 pg (27.0-33.0); MEAN CORPUSCULAR HGB CONC 34.2 g/dL (32.0-36.0); MEAN CORPUSCULAR VOLUME 89.1 fL (79-99); RED BLOOD CELL COUNT(AUTO) 4.79 MIL/uL (4.50-6.20); RED CELL DISTRIBUTION WIDTH 12.4 % (11.0-15.5); WHITE BLOOD COUNT (AUTO) 9.2 K/uL (4.8-10.8)
[2022-01-18 08:32] LABS: CREATININE 0.9 mg/dL (0.5-1.5); POTASSIUM 4.1 mmol/L (3.5-5.1)
[2022-01-18] MEDS ORDERED: KETOROLAC 30MG VIAL (30MG/ML) IM SCH (09:30)
[2022-01-18] MEDS ORDERED: ACET-2079 PO (09:39)
== END 2022-01-18 09:50 | disposition home or self-care (01) | DRG 465 ==
LOC: EDH 09:49 → EDHIP 09:50 → 3BH 01-15 04:53
PROVIDERS: ADMIT Hospitalist; ATTEND Hospitalist
PROC: 0T9030Z Drainage of Right Kidney with Drainage Device, Percutaneous Approach (ICD-10-PCS; principal; 2022-01-17)
DX: N13.2 Hydronephrosis with renal and ureteral calculous obstruction (principal); J96.11 Chronic respiratory failure with hypoxia; I42.9 Cardiomyopathy, unspecified; Z20.822 Contact with and (suspected) exposure to COVID-19; D72.829 Elevated white blood cell count, unspecified; E86.0 Dehydration; E87.6 Hypokalemia; F17.210 Nicotine dependence, cigarettes, uncomplicated; I10 Essential (primary) hypertension; Z53.29 Procedure and treatment not carried out because of patient's decision for other reasons; Z91.19 Patient's noncompliance with other medical treatment and regimen; Z87.442 Personal history of urinary calculi; Z82.49 Family history of ischemic heart disease and other diseases of the circulatory system
CPT/HCPCS: 36415; 50432; 71045; 74018; 74400; 76770; 80048; 80053; 80305; 81001; 83735; 83880; 84484; 85025; 85027; 85610; 85651; 85730; 86140; 87088; 87635; 93005; 93306; 99156; 99157; C1729; C1769; G0378; J0696; J1170; J1885; J2250; J3010; J7030; Q9967

== ENCOUNTER → 2022-02-07 | Outpatient (CLI) | payer MEDICAID ==
[~2022-02-07] MED LIST: ACET-2079 PO
== END | disposition home or self-care (01) ==
LOC: RAH 10:47
PROVIDERS: ATTEND Urology
DX: N20.0 Calculus of kidney (principal)
CPT/HCPCS: 74018; 76100

== ENCOUNTER 2022-02-17 06:58 | Emergency (ER) | payer MEDICAID ==
[~2022-02-17] VITALS: Ht 175.3 cm; Wt 81.6 kg
[2022-02-17 07:41] LABS: BASOPHILS % (AUTO) 0.2 % (0.0-5.0); HEMATOCRIT 43.6 % (42-54); LYMPHOCYTES % (AUTO) 5.9 % (21.0-51.0); MEAN CORPUSCULAR HEMOGLOBIN 30.6 pg (27.0-33.0); MEAN CORPUSCULAR HGB CONC 34.6 g/dL (32.0-36.0); MEAN CORPUSCULAR VOLUME 88.3 fL (79-99); MONOCYTES % (AUTO) 8.3 % (3.0-13.0); PLATELET COUNT (AUTO) 179 K/uL (130-400); RED BLOOD CELL COUNT(AUTO) 4.94 MIL/uL (4.50-6.20); RED CELL DISTRIBUTION WIDTH 12.7 % (11.0-15.5); WHITE BLOOD COUNT (AUTO) 15.7 K/uL (4.8-10.8)
[2022-02-17 07:50] LABS: CREATININE 1.1 mg/dL (0.5-1.5); POTASSIUM 3.3 mmol/L (3.5-5.1)
[2022-02-17 07:55] LABS: ALBUMIN 3.2 g/dL (3.5-5.0)
[2022-02-17 08:30] LABS: APPEARANCE,URINE CLEAR (CLEAR); BILIRUBIN,URINE NEGATIVE (NEGATIVE); COLOR,URINE YELLOW (YELLOW); GLUCOSE, URINE (UA) NEGATIVE (NEGATIVE); KETONES,URINE 5 mg/dL (NEGATIVE); LEUKOCYTE ESTERASE ,URINE MODERATE Leu/uL (NEGATIVE); NITRATE,URINE POSITIVE (NEGATIVE); OCCULT BLOOD,URINE LARGE (NEGATIVE); PROTEIN,URINE 100 mg/dL (NEGATIVE); UROBILINOGEN,URINE 0.2 mg/dL (0.2-1.0)
[2022-02-17] MEDS ORDERED: MORPHINE 4 MG SYG IVP ONE (08:30)
[2022-02-17 08:54] LABS: AMPHET/METH SCREEN,URINE NEGATIVE (NEGATIVE); BARBITURATE SCREEN, URINE NEGATIVE (NEGATIVE); BENZODIAZEPINES SCREEN,URINE NEGATIVE (NEGATIVE); CANNABINOID SCREEN,URINE NEGATIVE (NEGATIVE); COCAINE SCREEN,URINE NEGATIVE (NEGATIVE); PHENCYCLIDINE SCREEN,URINE NEGATIVE (NEGATIVE)
[2022-02-17 09:19] LABS: BACTERIA,URINE Moderate /HPF (None Seen); WBC,URINE TNTC /HPF (0-1)
[2022-02-17] MEDS ORDERED: KETOROLAC 15MG/ML VIAL (15MG/ML) ONE (09:40)
[2022-02-17] MEDS ORDERED: HYDROMORPHONE 0.5 MG SYG (0.5MG/0.5ML) ONE (11:07)
[2022-02-17] MEDS ORDERED: LEVOFLOXACIN 500 MG/D5W 100 ML 100 ML IV SCH (11:30)
[2022-02-17] MEDS ORDERED: HYDROMORPHONE 0.5 MG SYG (0.5MG/0.5ML) IVP ONE (11:30)
[2022-02-17] MEDS ORDERED: LEVO-70 PO (13:07)
[2022-02-17] MEDS ORDERED: ACET-2079 PO (13:07)
[2022-02-17] MEDS ORDERED: IBUP-2070 PO (13:07)
[2022-02-17 13:14] VITALS: BP 102/58
== END 2022-02-17 13:22 | disposition home or self-care (01) ==
LOC: EDH 06:58
DX: N30.00 Acute cystitis without hematuria (principal); Z87.442 Personal history of urinary calculi; Z98.890 Other specified postprocedural states; Z60.2 Problems related to living alone
CPT/HCPCS: 99285; 74176; 96365; 96375; 76770; 96366; 82550; 80053; 80305; 85025; 87077; 87088; 87186; 83605; 36415; 84145; 81001; J1956; J2270; J1885; J1170

== ENCOUNTER → 2022-03-05 | Outpatient (CLI) | payer MEDICAID ==
[~2022-03-05] MED LIST changes: +IBUP-2070 PO; +LEVO-70 PO
== END | disposition home or self-care (01) ==
LOC: RAH 08:37
PROVIDERS: ATTEND Urology
DX: N20.2 Calculus of kidney with calculus of ureter (principal)
CPT/HCPCS: 74018; 76100

== ENCOUNTER 2022-03-06 13:23 | Day surgery (SDC) | payer MEDICAID ==
[2022-03-05 16:35] VITALS: BP 105/64
[2022-03-05 17:14] LABS: MEAN CORPUSCULAR HEMOGLOBIN 30.1 pg (27.0-33.0); MEAN CORPUSCULAR HGB CONC 32.7 g/dL (32.0-36.0); RED BLOOD CELL COUNT(AUTO) 4.89 MIL/uL (4.50-6.20); RED CELL DISTRIBUTION WIDTH 12.8 % (11.0-15.5); WHITE BLOOD COUNT (AUTO) 7.9 K/uL (4.8-10.8)
[2022-03-05 17:27] LABS: INR 0.95 (0.85-1.15); PROTHROMBIN TIME 10.4 SEC (9.6-11.6)
[2022-03-05 17:28] LABS: PARTIAL THROMBOPLASTIN TIME 29.1 SEC (26.3-35.5)
[2022-03-05 17:45] LABS: ALBUMIN 3.3 g/dL (3.5-5.0); CREATININE 0.9 mg/dL (0.5-1.5); POTASSIUM 3.8 mmol/L (3.5-5.1); TOTAL PROTEIN, SERUM 7.2 g/dL (6.0-8.3)
[2022-03-06] VITALS (20 sets, daily range): BP systolic 93–111; BP diastolic 48–75
[~2022-03-06] VITALS: Ht 175.3 cm; Wt 81.2 kg
[~2022-03-06 13:23] MED LIST changes: -ACET-2079 PO; -IBUP-2070 PO; +KETAMINE 50MG/ML SYRINGE 50 MG/ML DISP.SYRIN IV ONE; +LACTATED RINGERS 1000ML 1,000 ML IV SCH; -LEVO-70 PO; +LIDOCAINE HCL 2% PF 20 ML JEL DISP.SYRIN MM ONE; +ZOSYN 3.375GM+NS 50ML 50 ML IV SCH
[2022-03-06] MEDS ORDERED: SUCCINYLCHOLINE 200MG/10ML SYR ONE (14:14)
[2022-03-06] MEDS ORDERED: MIDAZOLAM HCL 1 MG/ML 2ML VIAL ONE (14:14)
[2022-03-06] MEDS ORDERED: LIDOCAINE PF 100MG/5ML (2%) SYRINGE 5ML ONE (14:14)
[2022-03-06] MEDS ORDERED: DEXAMETHASONE SOD PHOSPHATE 10MG/ML 1ML VIAL ONE (14:14)
[2022-03-06] MEDS ORDERED: ONDANSETRON 4MG INJ ONE ×2 (14:15→14:33)
[2022-03-06] MEDS ORDERED: PIP/TAZ ZOSYN 3.375G 3.375 GM VIAL IVPB ONE (14:15)
[2022-03-06] MEDS ORDERED: FENTANYL CITRATE PF 50 MCG/1 ML 2ML VIAL ONE (14:15)
[2022-03-06] MEDS ORDERED: PROPOFOL 10 MG/ML 20ML VIAL IV ONE ×2 (14:15→14:18)
[2022-03-06] MEDS ORDERED: EPHEDRINE SULFATE 50 MG/ML AMPULE ONE (14:36)
== END 2022-03-06 19:05 | disposition home or self-care (01) ==
LOC: DAH 13:23
PROVIDERS: ATTEND Urology
DX: Z46.6 Encounter for fitting and adjustment of urinary device (principal); N20.0 Calculus of kidney; N40.0 Benign prostatic hyperplasia without lower urinary tract symptoms; F17.200 Nicotine dependence, unspecified, uncomplicated; Z95.5 Presence of coronary angioplasty implant and graft; Z72.89 Other problems related to lifestyle; Z79.899 Other long term (current) drug therapy; Z79.01 Long term (current) use of anticoagulants
CPT/HCPCS: 87426; 80053; 85027; 85610; 85730; 36415; 93005; 52310; 71046; 74018; J7120; J2543 ×2; J0330; J1100; J3490 ×5; J2250; J2405 ×2; A4358; A4215; A4223; A4222; A4221; A4663; A5113; J2001; J2704; J3010

== ENCOUNTER 2025-02-22 09:40 | Inpatient (IN) | payer MEDICAID ==
[~2025-02-22] VITALS: Ht 175.3 cm; Wt 87.5 kg
[2025-02-22 10:14] LABS: IMMATURE GRANULOCYTE ABSOLUTE 0.02 K/uL (0-1); NUCLEATED RED BLOOD CELLS 0.0 % (0.0-0.19); PLATELET COUNT (AUTO) 244 K/uL (130-400); RED BLOOD CELL COUNT(AUTO) 5.33 MIL/uL (4.50-6.20); RED CELL DISTRIBUTION WIDTH 12.6 % (11.0-15.5); WHITE BLOOD COUNT (AUTO) 7.6 K/uL (4.8-10.8)
[2025-02-22] MEDS: 0.9%NACL 1000ML 1,000 ML IV ONE (10:17)
[2025-02-22 10:32] LABS: ASPARTATE AMINOTRANSFERASE 14.0 U/L (10-37); CREATINE KINASE, TOTAL 73.0 U/L (21-232); CREATININE 0.8 mg/dL (0.5-1.3); GLOMERULAR FILTR. RATE CALC 108.0 mL/min (>90); GLUCOSE,RANDOM 63.0 mg/dL (70-105); SODIUM SERUM 143.0 mmol/L (136-145); TOTAL PROTEIN, SERUM 7.2 g/dL (6.0-8.3); UREA NITROGEN, BLOOD 9.0 mg/dL (7-18)
--- NOTE | 2025-02-22 10:37 | NUR ---
PT BECAME ALTERED A I WAS TALKING TO HIM. HE WAS NOT RESPONDING TO MY QUESTION, SPO2 DROPPED TO 88%. AWARE. Addendum: 02/22/25 at 1940 by EPIGLERGUE PT WAS PLACED ON NRB MASK 15L/MIN O2. ORDERED CT SCANS AND ABG.
--- NOTE | 2025-02-22 10:48 | NUR ---
BG 85
[2025-02-22 10:56] LABS: ABG BASE EXCESS -3.6 mmol/L (-2.0-3.0); ABG HCO3 20.3 mmol/L (21.0-28.0); ABG OXYGEN SATURATION 92.5 % (94.0-98.0); ABG PCO2 34 mmHg (35-48); ABG PH 7.399 (7.350-7.450); PO2, ARTERIAL BG 63.5 mmHg (83.0-108.0); TEMPERATURE, CELSIUS BG 37.0 CELSIUS (35.5-37.0); VENT MODE, BG 4 L NC (ROOM AIR)
--- NOTE | 2025-02-22 11:00 | NUR ---
PT IS ALERT AND ORIENTED.
[2025-02-22] MEDS ORDERED: IOHEXOL-350 75 ML VIAL IV ONE ×2 (11:29→11:36)
--- NOTE | 2025-02-22 11:31 | ERN ---
ED Note History of Present Illness Stated Complaint: LEFT FLANK PAIN, BILATERAL HAND NUMBNESS Chief Complaint: Flank Pain Time Seen by MD: 09:47 Dictation: 49-year-old male presenting to the emergency department with flank pain shortness a breath and numbness to his hands, patient reported that he was short of breath and also did cocaine last night was triaged by nurse who was unable to get an accurate oxygen pulse oximetry readings have Allergies: Uncoded Allergies: MUSCLE RELAXANTS (Allergy, Unknown, 02/17/22) Home Meds No Active Prescriptions or Reported Meds Past Medical History Past Medical History: CAD, CHF, Heart Disease, Kidney Stone, Lung Disease, Renal Disese Surgical History: CABG, Other, None Surgical History Other: 2- HEART SURGERIES, NEPHROSTOMY TUBE RT Family History: HTN Social History: Negative, Lives alone Review of System Dictation Constitutional: Negative for fever,chills, and weight loss Eyes: Negative for injury, pain,redness, and discharge ENT: Negative for injury,pain or swelling Cardiovascular: Negative for chest pain, palpitations, and edema Respiratory: Per HPI Abdomen/GI: Negative for abdominal pain, nausea, vomiting, diarrhea, and constipation Back: Per HPI : Negative for injury, bleeding and discharge MS/Extremity: Negative for injury and deformity Skin: Negative for rash, and discoloration Neuro: Per HPI Initial Vital Sign VS Vital Signs Date Time Temp Pulse Resp B/P (MAP) Pulse Ox O2 Delivery O2 Flow Rate FiO2 02/22/25 09:42 98.4 70 16 86/56 92 Room Air 0 Physical Exam Dictation General: awake, alert, appears uncomfortable Head/Face: Normocephalic, atraumatic Eyes: PERRL, EOMI, vision at baseline ENT: oral cavity clear, TMs clear, no signs of infection Neck: Trachea midline, supple, no nuchal rigidity Cardiovascular: RRR, normal S1/S2, No MRGs, no JVD Respiratory: CTAB, no respiratory distress, No rales or wheezes Abdomen: Soft, non-tender, non-distended, normal bowel sounds, no guarding or rebound. Skin: Warm, dry, normal turgor, no rash MS/Extremity: Pulses equal, no cyanosis, neurovascular intact, FROM Neuro: COAx4, GCS 15, strength 5/5, CN 2-12 intact, normal cerebellar exam, normal gait, Results (Laboratory/Radiology) Laboratory/Radiology Laboratory Tests Test 02/22/25 10:00 02/22/25 10:44 02/22/25 10:55 White Blood Count 7.6 K/uL (4.8-10.8) Red Blood Count 5.33 MIL/uL (4.50-6.20) Hemoglobin 16.4 g/dL (14.0-18.0) Hematocrit 48.0 % (42-54) Mean Corpuscular Volume 90.1 fL (79-99) Mean Corpuscular Hemoglobin 30.8 pg (27.0-33.0) Mean Corpuscular Hemoglobin Concent 34.2 g/dL (32.0-36.0) Red Cell Distribution Width 12.6 % (11.0-15.5) Platelet Count 244 K/uL (130-400) Mean Platelet Volume 8.8 fL (7.5-10.5) Immature Granulocyte % (Auto) 0.3 % (0-1) Neutrophils (%) (Auto) 65.3 % (40.0-77.0) Lymphocytes (%) (Auto) 23.6 % (21.0-51.0) Monocytes (%) (Auto) 6.7 % (3.0-13.0) Eosinophils (%) (Auto) 3.4 % (0.0-8.0) Basophils (%) (Auto) 0.7 % (0.0-5.0) Neutrophils # (Auto) 5.0 K/uL (1.8-7.7) Lymphocytes # (Auto) 1.8 K/uL (1.0-4.8) Monocytes # (Auto) 0.5 K/uL (0.1-1.0) Eosinophils # (Auto) 0.26 K/uL (0.00-0.70) Basophils # (Auto) 0.05 K/uL (0.00-0.20) Absolute Immature Granulocyte (auto 0.02 K/uL (0-1) Nucleated Red Blood Cells 0.0 % (0.0-0.19) D-Dimer Quantitative (PE/DVT) 299 ng/mL (0-500) Sodium Level 143 mmol/L (136-145) Potassium Level 3.7 mmol/L (3.5-5.1) Chloride Level 107 mmol/L (101-111) Carbon Dioxide Level 30 mmol/L (21-32) Blood Urea Nitrogen 9 mg/dL (7-18) Creatinine 0.8 mg/dL (0.5-1.3) Glomerular Filtration Rate Calc 108 mL/min (>90) Random Glucose 63 mg/dL (70-105) L Lactic Acid Level 1.2 mmol/L (0.8-2.5) Total Calcium 9.0 mg/dL (8.5-10.1) Total Bilirubin 0.6 mg/dL (0.2-1.0) Direct Bilirubin 0.1 mg/dL (0.0-0.3) Aspartate Amino Transf (AST/SGOT) 14 U/L (10-37) Alanine Aminotransferase (ALT/SGPT) 21 U/L (12-78) Alkaline Phosphatase 80 U/L (50-136) Total Creatine Kinase 73 U/L (21-232) # Troponin I High Sensitivity 4 ng/L (4-75) B-Type Natriuretic Peptide 28 pg/mL (0-100) Total Protein 7.2 g/dL (6.0-8.3) Albumin 3.7 g/dL (3.5-5.0) Lipase 30 U/L (16-77) Whole Blood Glucose 85 MG/DL (70-110) Blood Gas Specimen Type Arterial Arterial Blood pH 7.399 (7.350-7.450) Arterial Blood Partial Pressure CO2 34 mmHg (35-48) L Arterial Blood Partial Pressure O2 63.5 mmHg (83.0-108.0) L Arterial Blood HCO3 20.3 mmol/L (21.0-28.0) L Arterial Blood Oxygen Saturation 92.5 % (94.0-98.0) L Arterial Blood Base Excess -3.6 mmol/L (-2.0-3.0) L Blood Gas Temperature 37.0 CELSIUS (35.5-37.0) Blood Gas Flow-by 4.00 L/min (0.00-15.00) Blood Gas Vent Mode 4 L NC (ROOM AIR) FiO2 36.0 % Blood Gas Specimen Comment RR, Labs Reviewed?: Yes EKG Comment: Heart rate 91 normal intervals no STEMI or STEMI equivalent ED Course ED Course Orders Procedure Category Date Status Time 12 Lead Ekg Tracing- EKG 02/22/25 Complete Technical 10:00 Basic Metabolic Panel LAB 02/22/25 Complete 10:00 Blood Cult BAUDILIO 02/22/25 In Process 10:00 Cbc With Differential LAB 02/22/25 Complete 10:00 Hepatic Function Panel LAB 02/22/25 Complete 10:00 Drug Screen Urine LAB 02/22/25 Logged 10:00 Creatine Kinase, Total LAB 02/22/25 Complete 10:00 Lactic Acid LAB 02/22/25 Complete 10:00 Lipase LAB 02/22/25 Complete 10:00 Troponin I High LAB 02/22/25 Complete Sensitivity 10:00 Urinalysis Profile LAB 02/22/25 Logged 10:00 Chest 1vw RAD 02/22/25 Resulted 10:00 Ct Abd/Pel Wo Con CT 02/22/25 Resulted Renal/Appy 10:00 B-Type Natriuretic LAB 02/22/25 Complete Peptide 10:00 0.9%Nacl 1000ml (Ns PHA 02/22/25 Complete 1000ml) 10:30 Arterial Blood Gas RT 02/22/25 Transmitted 10:38 Ct Head/Brain W/O CT 02/22/25 Resulted Contrast 10:38 D-Dimer LAB 02/22/25 Complete 10:41 Ct Chest Pe Wwo CT 02/22/25 Resulted 10:44 Arterial Blood Gas LAB 02/22/25 Complete 10:55 Iohexol (Omnipaque) PHA 02/22/25 Complete 11:29 Iohexol (Omnipaque) PHA 02/22/25 Complete 11:36 Morphine 4mg Syg PHA 02/22/25 Complete (Morphine 4mg Syg) 12:00 Current Medications Medications (Trade) Dose Ordered Sig/Arnie Route PRN Reason Start Time Stop Time Status Last Admin Dose Admin Iohexol (Omnipaque) 75 ml STK-MED ONCE IV 02/22/25 11:29 02/22/25 11:29 DC Iohexol (Omnipaque) 75 ml STK-MED ONCE IV 02/22/25 11:36 02/22/25 11:37 DC Morphine Sulfate (morPHINE 4MG SYG) 4 mg ONCE ONCE IVP 02/22/25 12:00 02/22/25 12:01 DC 02/22/25 11:59 Sodium Chloride 1,000 ml @ 0 mls/hr ONCE ONCE IV 02/22/25 10:30 02/22/25 10:31 DC 02/22/25 10:17 Vital Signs Date Time Temp Pulse Resp B/P (MAP) Pulse Ox O2 Delivery O2 Flow Rate FiO2 02/22/25 09:42 98.4 70 16 86/56 92 Room Air 0 Medical Decision Making MDM MDM: Differential diagnosis: Rationale: Tests considered and ordered secondary to shared decision making include: labs, ECG and radiology Previous outside records reviewed: Old ER visits. Risk of complication and/or morbidity or mortality of patient management: None Medications-Per medication reconciliation Need for hospitalization: Patient does meet criteria for hospitalization. Need for emergency major/minor surgery: No There are no social concerns with this patient. Prescription drug management Prescriptions will include symptomatic care Patient's prior external medical records from other ER visits were reviewed by me as indicated. Prior testing and results from previous visits were reviewed. Prior tests were taken into account with medical decision making and resource utilization, independent historian/historians were used to obtain complete medical history. I independently interpreted the test that were performed, results were reviewed by me and considered findings on radiology if ordered. Medical management and examination interpretation discussions were had by me with other qualified healthcare professionals as indicated for the patient's care. Patient had episodes of altered mental status. Adding additional CT of the head 49-year-old male with left-sided flank pain hydro, still having pain admitting for additional care and evaluation. DX & DISP Disposition: Inpatient Departure Impression: Primary Impression: Hydronephrosis Additional Impression: Acute pyelonephritis Condition: Stable Scripts No Active Prescriptions or Reported Meds Referrals: ERICH PEREZ MD (PCP) DEA STOREY MD Feb 22, 2025 11:31
--- NOTE | 2025-02-22 11:47 | HMCIMG ---
EXAM: CR Chest, 1 View. CLINICAL HISTORY: sob COMPARISON: 01/14/22 11:09 EDT CR - CHEST 1VW FINDINGS: LUNGS: There is no mass, infiltrate, or acute pulmonary abnormality. PLEURAL SPACES: No evidence of pleural effusion or pneumothorax. MEDIASTINUM: Cardiac size and mediastinal contours within normal limits. BONES: No acute osseous abnormality. IMPRESSION: No acute cardiopulmonary pathology is evident. /[place]
--- NOTE | 2025-02-22 12:01 | HMCIMG ---
EXAM: CT Head Without IV contrast. CLINICAL HISTORY: AMS TECHNIQUE: Axial computed tomography images of the head/brain without intravenous contrast. COMPARISON: None provided. FINDINGS: BRAIN: No acute bleed or infarct. 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 VENTRICLES: No hydrocephalus. ORBITS: The orbits are unremarkable. SINUSES AND MASTOIDS: The paranasal sinuses and mastoid air cells are clear. BONES: No fracture. SOFT TISSUES: Unremarkable. IMPRESSION: 1. No acute bleed or infarct. 2. 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 /[place]
--- NOTE | 2025-02-22 12:14 | HMCIMG ---
EXAM: CT Abdomen and Pelvis Without IV contrast CLINICAL HISTORY: left flank pain TECHNIQUE: Axial computed tomography images of the abdomen and pelvis without intravenous contrast. CONTRAST: No IV contrast. COMPARISON: CT dated 02/17/2022. FINDINGS: LUNG BASES: The lung bases appear clear. No pleural effusions are seen. LIVER: Unremarkable. GALLBLADDER AND BILE DUCTS: The gallbladder appears within normal limits. No radioopaque gallstones are seen. No biliary ductal dilatation is evident. PANCREAS: Unremarkable. SPLEEN: Unremarkable. ADRENAL GLANDS: Unremarkable. KIDNEYS, URETERS, AND BLADDER: 4 mm stone in the urinary bladder ureterovesicular junction with mild left hydroureteronephrosis. This likely represents a recently passed stone. No right renal or ureteral stones. No right hydronephrosis. STOMACH AND BOWEL: No bowel obstruction or inflammation. APPENDIX: Normal appendix. PERITONEUM: No free fluid. No free air. LYMPH NODES: No lymphadenopathy is evident. REPRODUCTIVE: Unremarkable as visualized. VASCULATURE: No evidence of abdominal aortic aneurysm. BONES: No aggressive appearing osseous lesion. No acute osseous pathology evident. MISCELLANEOUS: Small fat-containing hernias in the bilateral inguinal regions and in the umbilical region. 3.3 x 2.4 cm soft tissue nodule in the left inguinal region with adjacent soft tissue stranding (for example image 120 series 2) which is of uncertain etiology. Correlation with physical exam is recommended if indicated, a contrast-enhanced exam can be performed. IMPRESSION: 1. 4 mm stone in the urinary bladder ureterovesicular junction with mild left hydroureteronephrosis. This likely represents a recently passed stone. 2. No right renal or ureteral stones. No right hydronephrosis. 3. No bowel obstruction or inflammation. Normal appendix. 4. Small fat-containing hernias in the bilateral inguinal regions and in the umbilical region. 5. 3.3 x 2.4 cm soft tissue nodule in the left inguinal region with adjacent soft tissue stranding which is of uncertain etiology but is grossly unchanged when compared with the prior noncontrast exam. Correlation with physical exam is recommended if indicated, a contrast-enhanced exam can be performed. /[place]
--- NOTE | 2025-02-22 12:20 | EKG ---
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
--- NOTE | 2025-02-22 14:05 | HMCIMG ---
EXAM: CTA Chest with and without Intravenous Contrast for PE evaluation CLINICAL HISTORY: sob, chest pain TECHNIQUE: Axial CTA images of the chest with and without intravenous contrast using a pulmonary embolism protocol. Multiplanar reconstructed images were created and reviewed. CONTRAST: None was administered without incident. COMPARISON: CR CHEST DATED 02/22 10:13 EDT FINDINGS: PULMONARY ARTERIES: No obvious filling defect within the pulmonary trunk or main pulmonary arteries. Please note that segmental and subsegmental arteries were not adequately opacified to evaluate patency. AORTA: The ascending aorta is seen arising from the right ventricular outflow tract (RVOT). There is no evidence for aneurysm or dissection of the thoracic aorta. LUNGS: Tiny fibro-atelectatic band is seen along the posterior segment of the right upper lobe. PLEURAL SPACES: No evidence of pneumothorax. No pleural effusion. 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 A few tiny specks of calcific foci are seen along the pericardium of the heart. Normal heart size. No significant pericardial effusion. LYMPH NODES: No lymphadenopathy is evident. BONES: No focal osseous abnormality or acute fracture. UPPER ABDOMEN: Images of the upper abdomen are unremarkable. 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 IMPRESSION: 1. No evidence of pulmonary embolism. The examination is limited as segmental and subsegmental arteries were not adequately opacified to evaluate patency. 2. 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 3. Persistent left superior vena cava. 4. Tiny fibro-atelectatic band in the right upper lobe. 5. Tiny pericardial calcifications. /[place]
[2025-02-22] MEDS ORDERED: PoTASSium chloRIDE 20MEQ ER 20 MEQ ERTAB PO PRN (16:30)
[2025-02-22] MEDS ORDERED: NITROGLYCERIN 0.4 MG SL TAB SL PRN (16:30)
[2025-02-22] MEDS ORDERED: guaiFENesin-DM 200/20MG 10ML PO PRN (16:30)
[2025-02-22] MEDS ORDERED: DEXTROSE 50%-WATER 50 ML DISP.SYRIN IV PRN (16:30)
[2025-02-22] MEDS ORDERED: GLUCAGON 1MG KIT 1 MG ML IM PRN (16:30)
[2025-02-22] MEDS ORDERED: FAMOTIDINE 20MG VIAL IV PRN (16:30)
[2025-02-22] MEDS ORDERED: MAGNESIUM 2GM PREMIX 50ML 50 ML IV PRN (16:30)
[2025-02-22] MEDS ORDERED: LACTULOSE 20 GM/30 ML UDCUP PO PRN (16:30)
[2025-02-22] MEDS ORDERED: ALBUTEROL 0.083% 2.5 MG/3 ML INH IH PRN (16:30)
[2025-02-22] MEDS ORDERED: MAG/ALUM/SIMETH 30 ML UDCUP PO PRN (16:30)
[2025-02-22] MEDS ORDERED: PoTASSium chl 10% ELIXIR 20MEQ 20 MEQ/15 ML UDCUP PO PRN (16:30)
--- NOTE | 2025-02-22 16:47 | HP ---
[facility] HISTORY [facility] PHYSICAL Date of Service: Feb 22, 2025 Time of Service: 16:30 PCP: none Admitting: Dr Jose, Allergies: Muscle relaxant HISTORY OF PRESENT ILLNESS: [ Patient is 49-year-old male with a past medical history of Coronary Artery Disease, CHF, hyperlipidemia, heart disease, kidney stones, respiratory distress needing O2 at home, who came to emergency department with a complaint of left flank pain and shortness of breaths. Patient stated that since yesterday afternoon he has been having left back pain that is radiating to his left groin. Patient stated that previously he already had a kidney stone and he had a nephrostomy tube placement with a stent but on right side. He also stated that this is exactly same pain as he experienced few years ago. Patient also admitted that he took some cocaine last night. At this moment patient is on 2 L nasal cannula. When asked if patient has any oxygen at home, he stated that at the age of and [age] year he were two heart surgeries and since then he has been needing an oxygen. Oxygen is as needed and he is trying to wean himself off went only possible. Most recent vital signs temperature 98.4 pulse 70 respirations 16 blood pressure 86/56 patient is on 2 L nasal cannula satting 94%.] Most recent labs WBC 7.6 hemoglobin 16.4 hematocrit 48 platelets 244. Sodium 143 potassium 3.7 CO2 30 BUN nine creatinine 0.8 GFR 108 lactic 1.2 bilirubin 0.1 AST 14 ALT 21 CK 73 troponin negative BNP 28 CT abdomen /pelvis showed 4 mm stone in the urinary bladder ureterovesicular junction with a mild left hydroureteronephrosis. Likely represent recent passed stone. No right renal or ureteral stones. No right hydronephrosis. No bowel obstruction. Small fat containing hernias in bilateral inguinal regions and in the umbilical region. 8.3 x 2.4 cm soft tissue nodule in the left inguinal region with adjacent soft tissue stranding which is of uncertain etiology but is grossly unchanged two with a compare with the prior noncontrast exam. Chest x- ray negative. 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 Chest CT showed no evidence of PE. Persistent left superior vena cava. Tiny fibro atelectatic band in the right upper lobe. Tiny pericardial calcifications. 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 Patient will be admitted under hospitalist care for further evaluation/recommendation. Urologist will be consulted. REVIEW OF SYSTEMS CONSTITUTIONAL: Denies fevers, chills, or night sweats. No unintentional weight loss reported. NEUROLOGICAL: Denies headache, amaurosis fugax, motor weakness, sensory deficit, vertigo/spinning sensation, gait abnormalities, or tremors. ENT: No hearing loss, otalgia, otorrhea, rhinitis, rhinorrhea, hoarseness, or sore throat. CARDIOVASCULAR: Denies any exertional angina, dyspnea on exertion, orthopnea, paroxysmal nocturnal dyspnea, palpitations, life-threatening arrhythmias, claudication. PULMONARY: Denies any shortness of breath, cough, phlegm/sputum, hemoptysis, pleuritic chest pain. SLEEP: Denies morning headaches, daytime somnolence or napping. Denies difficulty falling asleep, staying asleep, waking from sleep. Denies knowledge of snoring. GASTROINTESTINAL: Denies any type of dysphagia to either liquids or solids. Denies nausea, vomiting, pyrosis, early satiety, abdominal pain, diarrhea, constipation, or changes in stool consistency or caliber. Denies coffee-ground emesis, hematemesis, hematochezia, or melanotic stools. GENITOURINARY: Denies frequency, urgency, nocturia, hematuria or incontinence (Storage/Irritative symptoms.) Low urinary stream, straining to void, urinary intermittency or hesitancy, splitting of the voiding stream, terminal dribbling. Left flank pain radiating to the left groin ENDOCRINOLOGIC: Denies polyuria, polydipsia, polyphagia or heat/cold intolerances. HEMATOLOGIC: Denies thrombophilia/previous clots, or coagulopathy/bleeding disorders. ONCOLOGIC: Denies personal history of malignancy. DERMATOLOGIC: Denies rashes or pruritus. PSYCHIATRIC: Denies any suicidal or homicidal ideation. Denies hallucinations. PAST MEDICAL HISTORY: [ Infarct, Coronary Artery Disease, CHF, heart disease, kidney stones, lung disease, ] PAST SURGICAL HISTORY: [ To open heart surgeries, nephrostomy tube] PAST SOCIAL HISTORY: [ Patient vapes on daily basis. Patient denies any alcohol illicit. Patient takes occasionally cocaine] FAMILY HISTORY: [ Patient independent. Patient lives at home alone] Uncoded Allergies: MUSCLE RELAXANTS (Allergy, Unknown, 02/17/22) PHYSICAL EXAM GENERAL APPEARANCE: The patient is awake, alert, and oriented, in no acute cardiopulmonary distress. NEUROLOGICAL: Cranial nerves II-XII grossly intact. Motor is 5/5 in bilateral upper and lower extremities proximal to distal. No sensory deficits. HEENT: Face is symmetric. Pupils are equal and reactive. Extraocular movements are intact. NECK: Supple. No JVD. No thyromegaly. No submental, submandibular, pre- /postauricular, occipital or supraclavicular lymphadenopathy. CHEST: Normal chest expansion. No Telemetry. LUNGS: Absence of any rales, rhonchi or any wheezing. CARDIOVASCULAR: Regular. S1 and S2 normal. No appreciable rubs, murmurs or gallops. ABDOMEN: Soft, nontender, and nondistended. There is no rebound, voluntary guarding, or rigidity. : Deferred. No Sky. EXTREMITIES: Non-edematous and not cyanotic. No clubbing. Good capillary refill. SKIN: No skin breakdown. Vital Sign (Last 24 Hours) 02/22/25 09:42 Temp 98.4 Pulse 70 Resp 16 B/P (MAP) 86/56 Pulse Ox 92 O2 Delivery Room Air O2 Flow Rate 0 LABS: Laboratory: Test 02/22/25 10:55 02/22/25 10:44 02/22/25 10:00 Range/Units Blood Gas Specimen Type Arterial Arterial Blood pH 7.399 7.350-7.450 Arterial Blood Partial Pressure CO2 34 L 35-48 mmHg Arterial Blood Partial Pressure O2 63.5 L 83.0-108.0 mmHg Arterial Blood HCO3 20.3 L 21.0-28.0 mmol/L Arterial Blood Oxygen Saturation 92.5 L 94.0-98.0 % Arterial Blood Base Excess -3.6 L -2.0-3.0 mmol/L Blood Gas Temperature 37.0 35.5-37.0 CELSIUS Blood Gas Flow-by 4.00 0.00-15.00 L/min Blood Gas Vent Mode 4 L NC ROOM AIR FiO2 36.0 % Blood Gas Specimen Comment RR, Whole Blood Glucose 85 70-110 MG/DL White Blood Count 7.6 4.8-10.8 K/uL Red Blood Count 5.33 4.50-6.20 MIL/uL Hemoglobin 16.4 14.0-18.0 g/dL Hematocrit 48.0 42-54 % Mean Corpuscular Volume 90.1 79-99 fL Mean Corpuscular Hemoglobin 30.8 27.0-33.0 pg Mean Corpuscular Hemoglobin Concent 34.2 32.0-36.0 g/dL Red Cell Distribution Width 12.6 11.0-15.5 % Platelet Count 244 130-400 K/uL Mean Platelet Volume 8.8 7.5-10.5 fL Immature Granulocyte % (Auto) 0.3 0-1 % Neutrophils (%) (Auto) 65.3 40.0-77.0 % Lymphocytes (%) (Auto) 23.6 21.0-51.0 % Monocytes (%) (Auto) 6.7 3.0-13.0 % Eosinophils (%) (Auto) 3.4 0.0-8.0 % Basophils (%) (Auto) 0.7 0.0-5.0 % Neutrophils # (Auto) 5.0 1.8-7.7 K/uL Lymphocytes # (Auto) 1.8 1.0-4.8 K/uL Monocytes # (Auto) 0.5 0.1-1.0 K/uL Eosinophils # (Auto) 0.26 0.00-0.70 K/uL Basophils # (Auto) 0.05 0.00-0.20 K/uL Absolute Immature Granulocyte (auto 0.02 0-1 K/uL Nucleated Red Blood Cells 0.0 0.0-0.19 % D-Dimer Quantitative (PE/DVT) 299 0-500 ng/mL Sodium Level 143 136-145 mmol/L Potassium Level 3.7 3.5-5.1 mmol/L Chloride Level 107 101-111 mmol/L Carbon Dioxide Level 30 21-32 mmol/L Blood Urea Nitrogen 9 7-18 mg/dL Creatinine 0.8 0.5-1.3 mg/dL Glomerular Filtration Rate Calc 108 >90 mL/min Random Glucose 63 L 70-105 mg/dL Lactic Acid Level 1.2 0.8-2.5 mmol/L Total Calcium 9.0 8.5-10.1 mg/dL Total Bilirubin 0.6 0.2-1.0 mg/dL Direct Bilirubin 0.1 0.0-0.3 mg/dL Aspartate Amino Transf (AST/SGOT) 14 10-37 U/L Alanine Aminotransferase (ALT/SGPT) 21 12-78 U/L Alkaline Phosphatase 80 50-136 U/L Total Creatine Kinase 73 # 21-232 U/L Troponin I High Sensitivity 4 4-75 ng/L B-Type Natriuretic Peptide 28 0-100 pg/mL Total Protein 7.2 6.0-8.3 g/dL Albumin 3.7 3.5-5.0 g/dL Lipase 30 16-77 U/L DIAGNOSTICS / RADIOLOGY: [ ] ASSESSMENT: [Acute on chronic hypoxic respiratory failure POA Left flank pain severe POA 4 mm stone in the urinary bladder ureterovesicular junction with mild left hydroureteronephrosis per CT abdomen/pelvis Small fat containing hernias in the bilateral inguinal regions at the umbilical region per CT abdomen/pelvis POA 3.3 x 2.4 cm soft tissue nodule in the left inguinal region per CT abdome n/pelvis POA 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 and pulmonary artery from the left ventricle outflow tract per CT chest POA Persistent left superior vena cava per CT chest POA Tiny fibro atelectasis in right upper lobe per CT chest POA Tiny pericardial calcifications per CT chest POA 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 labs 2D echo pending CT abdomen /pelvis showed 4 mm stone in the urinary bladder ureterovesicular junction with a mild left hydroureteronephrosis. Likely represent recent passed stone. No right renal or ureteral stones. No right hydronephrosis. No bowel obstruction. Small fat containing hernias in bilateral inguinal regions and in the umbilical region. 8.3 x 2.4 cm soft tissue nodule in the left inguinal region with adjacent soft tissue stranding which is of uncertain etiology but is grossly unchanged two with a compare with the prior noncontrast exam. Chest x-ray negative. 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 Chest CT showed no evidence of PE. Persistent left superior vena cava. Tiny fibro atelectatic band in the right upper lobe. Tiny pericardial calcifications. 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 Hyper and hypoglycemia protocol Hypomagnesemia protocol Hypokalemia protocol Medication to be reconciled once available PRN home medications Blood culture pending Urine culture pending Cardiac diet ] ADVANCED CARE PLANNING 1. Which of the following were discussed? Hospice Care - Yes / No Therapeutic options - Yes / No Advance Directives - Yes / No Other discussions - 2. Discussed with who? Patient 3. Voluntary nature of this service was explained to the patient? Yes / No 4. Amount of time spent - ___ more than 35 minute ____ 5. Reviewed by Physician? (if this service was performed by NPP) Yes / No \ATTESTATION BY PHYSICIAN I have seen and examined the patient. I reviewed the documentation, medical decision making, and treatment plan as noted by the mid-level provider above. I agree with the findings and plan of care. Jessy Jose MD, KATARZYNA B HOOKMAN Feb 22, 2025 16:47
[2025-02-22 16:53] VITALS: PULSE 78; RESP 20; O2SAT 96
--- NOTE | 2025-02-22 17:34 | NUR ---
PATIENT VAPES Addendum: 02/22/25 at 1735 by RADHA LOVETT, RT RT Amended: Links added.
[2025-02-22] MEDS: 0.9%NACL 1000ML 1,000 ML IV SCH (17:43)
[2025-02-22] MEDS: ZOSYN 3.375GM+NS 50ML 50 ML IV SCH (17:55)
--- NOTE | 2025-02-22 18:06 | NUR ---
FIRST ATTEMPT AT CALLING REPORT
[2025-02-22 18:36] LABS: COVID19 (SARS ANTIGEN RAPID) PRESUMPTIVE NEGATIVE (NEGATIVE)
[2025-02-22 18:37] LABS: INFLUENZA TYPE A Negative For Type A (NEGATIVE); INFLUENZA TYPE B Negative For Type B (NEGATIVE)
[2025-02-22 19:17] VITALS: PULSE 75; RESP 20; O2SAT 93
[2025-02-22 20:02] LABS: APPEARANCE,URINE CLEAR (CLEAR); GLUCOSE, URINE (UA) NEGATIVE (NEGATIVE); LEUKOCYTE ESTERASE ,URINE NEGATIVE Leu/uL (NEGATIVE); NITRATE,URINE NEGATIVE (NEGATIVE); OCCULT BLOOD,URINE SMALL (NEGATIVE)
[2025-02-22 20:09] LABS: AMPHET/METH SCREEN,URINE NEGATIVE (NEGATIVE); BARBITURATE SCREEN, URINE NEGATIVE (NEGATIVE); CANNABINOID SCREEN,URINE NEGATIVE (NEGATIVE); COCAINE SCREEN,URINE POSITIVE (NEGATIVE)
[2025-02-22 20:57] VITALS: BP 115/93; PULSE 71; RESP 18; TEMP 98
[2025-02-22 21:10] VITALS: O2SAT 94
[2025-02-22 21:39] VITALS: PULSE 73; RESP 24; O2SAT 90
--- NOTE | 2025-02-22 21:47 | NUR ---
Patient noncompliant with oxygen keeps removing it even though its in the lower side 88% to 90% educated him on how important it is for him to wear it he says his okay for now that all this things frustrate him thats why he does not come to the hospitals, I notified FAY Lopez on it. Addendum: 02/22/25 at 2150 by JUSTINE PITTS RT Amended: Links added.
[2025-02-22 22:30] VITALS: BP 147/85; PULSE 71; RESP 18
[2025-02-23] VITALS (17 sets, daily range): BP systolic 81–106; BP diastolic 55–75; PULSE 62–82; RESP 18–24; TEMP 97.5–98.7; O2SAT 88–95
[2025-02-23 04:56] LABS: IMMATURE GRANULOCYTE ABSOLUTE 0.02 K/uL (0-1); NUCLEATED RED BLOOD CELLS 0.0 % (0.0-0.19); PLATELET COUNT (AUTO) 200 K/uL (130-400); RED BLOOD CELL COUNT(AUTO) 4.70 MIL/uL (4.50-6.20); RED CELL DISTRIBUTION WIDTH 12.6 % (11.0-15.5); WHITE BLOOD COUNT (AUTO) 7.7 K/uL (4.8-10.8)
[2025-02-23 05:22] LABS: ASPARTATE AMINOTRANSFERASE 13.0 U/L (10-37); CREATINE KINASE, TOTAL 50.0 U/L (21-232); CREATININE 0.8 mg/dL (0.5-1.3); GLOMERULAR FILTR. RATE CALC 108.0 mL/min (>90); GLUCOSE,RANDOM 98.0 mg/dL (70-105); SODIUM SERUM 141.0 mmol/L (136-145); TOTAL PROTEIN, SERUM 6.2 g/dL (6.0-8.3); UREA NITROGEN, BLOOD 19.0 mg/dL (7-18)
--- NOTE | 2025-02-23 12:27 | HMCSR ---
APPROVED REPORT EXAM: Two-dimensional and M-mode echocardiogram with Doppler and color Doppler. Study Details: Hx: Transposition of the great arteries INDICATION ICD: Congestive heart failure 2D Dimensions RVDd5.2 cmLVEF(%)64.9 (>50%)LVED Vol(simp.)66.0 mL IVSd0.7 (0.7-1.1cm)FS(%)35 %LVES Vol(simp.)24.0 mL LVDd3.9 (3.8-5.6cm)LA (2D)3.5 (1.6-4.0cm)LVEF(%, simp.)63 % PWd0.7 (0.7-1.1cm)Ao Root(2D)2.9 (2.0-3.7cm) IVSs0.8 cmLVOT diam2.2 (1.8-2.4cm) LVDs2.5 (2.5-4.0cm)IVC diam1.6 cm PWs0.8 cm M-Mode Dimensions EPSS0.3 cm LA (MM)4.1 (1.6-4.0cm) Ao Root(MM)2.2 (2.0-3.7cm) Mitral Valve MV E Vmax94.9 cm/sDECEL Svom573 ms MV A Vmax64.7 cm/sP 1/2 T35 ms E/A ratio1.5MVA (PHT)6.3 cm2 Pulmonary Valve PV Vmax0.9 m/s PV Peak GR3.6 mmHg Tricuspid Valve TR Vmax1.9 m/sRAP (EST) 3 riWkQNCC66.7 mmHg TR Peak GR13.7 mmHg Left Ventricle Left ventricular cavity size is normal. D shaped left ventricle suggest right ventricular volume/pres sure overload. There is normal LV segmental wall motion. There is normal left ventricular wall thickn ess. LVEF is 60-65%. The LV diastolic function was unable to be assessed Right Ventricle The right ventricle is severely dilated. The right ventricular systolic function is normal. Atria The left atrium size is normal. The right atrium is moderately dilated. Aortic Valve The aortic valve is not well visualized. No aortic regurgitation is present. There is no aortic valvu lar stenosis. Mitral Valve The mitral valve is normal in structure. There is no mitral valve regurgitation noted. There is no mi tral valve stenosis. Tricuspid Valve The tricuspid valve leaflets appear normal. There is trace tricuspid valve regurgitation noted. Pulmonic Valve Pulmonic valve is not well visualized. There is no pulmonic valvular regurgitation. Great Vessels The aortic root is normal in size. IVC is normal in size and collapses <50% with inspiration. Pericardium No pericardial effusion. Other Information Quality : Technically difficult study due to body habitus Conclusion Left ventricular cavity size is normal. D shaped left ventricle suggest right ventricular volume/pressure overload. LVEF is 60-65%. The LV diastolic function was unable to be assessed The right ventricle is severely dilated. The right ventricular systolic function is normal. The left atrium size is normal. The right atrium is moderately dilated. No valvular pathology. No pericardial effusion.
--- NOTE | 2025-02-23 12:54 | NUR ---
DCP:HOME Pt currently lives alone in his home. Pt claims to have o2 from [employer]. Pt has a provider for 3hrs a day and he assist with home management and meals. PCP is Dr Tom Atwood and uses [facility] for any RX needs. SW tried to get a point of contact for assistance and/or in case of emergency and pt states he has "adult children and siblings" but refuses to involve them in his care. He states that he prefers to "handle things on his own". At OR pt states that he wants to go home and he drove to the hospital. Addendum: 02/23/25 at 1302 by JOSE A TATE SS Amended: Links added.
--- NOTE | 2025-02-23 16:16 | PN ---
[facility] PROGRESS NOTE Date of Service: Feb 23, 2025 Time of Service: 16:16 SUBJECTIVE: [ ] Patient is 49-year-old male with a past medical history of Coronary Artery Disease, CHF, hyperlipidemia, heart disease, kidney stones, respiratory distress needing O2 at home, who came to emergency department with a complaint of left flank pain and shortness of breaths. Patient stated that since yesterday afternoon he has been having left back pain that is radiating to his left groin. Patient stated that previously he already had a kidney stone and he had a nephrostomy tube placement with a stent but on right side. He also stated that this is exactly same pain as he experienced few years ago. Patient also admitted that he took some cocaine last night. At this moment patient is on 2 L nasal cannula. When asked if patient has any oxygen at home, he stated that at the age of and [age] year he were two heart surgeries and since then he has been needing an oxygen. Oxygen is as needed and he is trying to wean himself off went only possible. Most recent vital signs temperature 98.4 pulse 70 respirations 16 blood pressure 86/56 patient is on 2 L nasal cannula saturating 94%.CT abdomen /pelvis showed 4 mm stone in the urinary bladder ureterovesicular junction with a mild left hydroureteronephrosis. Likely represent recent passed stone. No right renal or ureteral stones. No right hydronephrosis. 02/23/2025: Patient seen and evaluated at bedside in room 305. Case discussed with RN, no acute overnight events. Patient is complaining of severe pain and says morphine is not helping him. We will start Toradol and Flomax today. Patient's vitals shows blood pressure 104/67, pulse rate 74, respiratory rate 18, saturating 94 at room air. Urology was consulted and we will follow up with the recommendations. REVIEW OF SYSTEMS CONSTITUTIONAL: Denies fevers, chills, or night sweats. No unintentional weight loss reported. NEUROLOGICAL: Denies headache, amaurosis fugax, motor weakness, sensory deficit, vertigo/spinning sensation, gait abnormalities, or tremors. ENT: No hearing loss, otalgia, otorrhea, rhinitis, rhinorrhea, hoarseness, or sore throat. CARDIOVASCULAR: Denies any exertional angina, dyspnea on exertion, orthopnea, paroxysmal nocturnal dyspnea, palpitations, life-threatening arrhythmias, claudication. PULMONARY: Denies any shortness of breath, cough, phlegm/sputum, hemoptysis, pleuritic chest pain. SLEEP: Denies morning headaches, daytime somnolence or napping. Denies diff iculty falling asleep, staying asleep, waking from sleep. Denies knowledge of snoring. GASTROINTESTINAL: Denies any type of dysphagia to either liquids or solids. Denies nausea, vomiting, pyrosis, early satiety, abdominal pain, diarrhea, constipation, or changes in stool consistency or caliber. Denies coffee-ground emesis, hematemesis, hematochezia, or melanotic stools. GENITOURINARY: Denies frequency, urgency, nocturia, hematuria or incontinence (Storage/Irritative symptoms.) Low urinary stream, straining to void, urinary intermittency or hesitancy, splitting of the voiding stream, terminal dribbling. Left flank pain radiating to the left groin ENDOCRINOLOGIC: Denies polyuria, polydipsia, polyphagia or heat/cold intolerances. HEMATOLOGIC: Denies thrombophilia/previous clots, or coagulopathy/bleeding disorders. ONCOLOGIC: Denies personal history of malignancy. DERMATOLOGIC: Denies rashes or pruritus. PSYCHIATRIC: Denies any suicidal or homicidal ideation. Denies hallucinations. PHYSICAL EXAM GENERAL APPEARANCE: The patient is awake, alert, and oriented, in no acute cardiopulmonary distress. NEUROLOGICAL: Cranial nerves II-XII grossly intact. Motor is 5/5 in bilateral upper and lower extremities proximal to distal. No sensory deficits. HEENT: Face is symmetric. Pupils are equal and reactive. Extraocular movements are intact. NECK: Supple. No JVD. No thyromegaly. No submental, submandibular, pre- /postauricular, occipital or supraclavicular lymphadenopathy. CHEST: Normal chest expansion. No Telemetry. LUNGS: Absence of any rales, rhonchi or any wheezing. CARDIOVASCULAR: Regular. S1 and S2 normal. No appreciable rubs, murmurs or gallops. ABDOMEN: Soft, nontender, and nondistended. There is no rebound, voluntary guarding, or rigidity. : Deferred. No Sky. EXTREMITIES: Non-edematous and not cyanotic. No clubbing. Good capillary refill. SKIN: No skin breakdown. Vital Signs (last 8hr) Date Time Temp Pulse Resp B/P (MAP) Pulse Ox O2 Delivery O2 Flow Rate FiO2 02/23/25 14:32 82 20 02/23/25 14:31 82 20 N/Cannula Low lpm 21 02/23/25 12:00 98.8 62 19 106/55 90 Room Air 02/23/25 11:00 78 20 02/23/25 10:59 78 20 N/Cannula Low lpm 21 LABS: Laboratory: Test 02/23/25 15:41 02/23/25 04:50 02/22/25 19:54 02/22/25 18:10 Range/Units Whole Blood Glucose 133 H 70-110 MG/DL White Blood Count 7.7 4.8-10.8 K/uL Red Blood Count 4.70 4.50-6.20 MIL/uL Hemoglobin 14.3 14.0-18.0 g/dL Hematocrit 43.7 42-54 % Mean Corpuscular Volume 93.0 79-99 fL Mean Corpuscular Hemoglobin 30.4 27.0-33.0 pg Mean Corpuscular Hemoglobin Concent 32.7 32.0-36.0 g/dL Red Cell Distribution Width 12.6 11.0-15.5 % Platelet Count 200 130-400 K/uL Mean Platelet Volume 9.0 7.5-10.5 fL Immature Granulocyte % (Auto) 0.3 0-1 % Neutrophils (%) (Auto) 59.5 40.0-77.0 % Lymphocytes (%) (Auto) 29.1 21.0-51.0 % Monocytes (%) (Auto) 6.7 3.0-13.0 % Eosinophils (%) (Auto) 3.9 0.0-8.0 % Basophils (%) (Auto) 0.5 0.0-5.0 % Neutrophils # (Auto) 4.6 1.8-7.7 K/uL Lymphocytes # (Auto) 2.2 1.0-4.8 K/uL Monocytes # (Auto) 0.5 0.1-1.0 K/uL Eosinophils # (Auto) 0.30 0.00-0.70 K/uL Basophils # (Auto) 0.04 0.00-0.20 K/uL Absolute Immature Granulocyte (auto 0.02 0-1 K/uL Nucleated Red Blood Cells 0.0 0.0-0.19 % Sodium Level 141 136-145 mmol/L Potassium Level 4.3 3.5-5.1 mmol/L Chloride Level 108 101-111 mmol/L Carbon Dioxide Level 24 21-32 mmol/L Blood Urea Nitrogen 19 H 7-18 mg/dL Creatinine 0.8 0.5-1.3 mg/dL Glomerular Filtration Rate Calc 108 >90 mL/min Random Glucose 98 # 70-105 mg/dL Lactic Acid Level 1.2 0.8-2.5 mmol/L Total Calcium 8.2 L 8.5-10.1 mg/dL Magnesium Level 2.00 1.80-2.40 mg/dL Total Bilirubin 0.3 # 0.2-1.0 mg/dL Direct Bilirubin 0.1 0.0-0.3 mg/dL Aspartate Amino Transf (AST/SGOT) 13 10-37 U/L Alanine Aminotransferase (ALT/SGPT) 18 12-78 U/L Alkaline Phosphatase 61 50-136 U/L Ammonia 55 H 11-32 umol/L Total Creatine Kinase 50 # 21-232 U/L B-Type Natriuretic Peptide 43 0-100 pg/mL Total Protein 6.2 6.0-8.3 g/dL Albumin 3.1 L 3.5-5.0 g/dL Amylase Level 62 # 25-115 U/L Lipase 37 16-77 U/L Vitamin B12 Level 320 193-986 pg/mL Procalcitonin < 0.05 L 0.05-0.5 ng/mL Thyroid Stimulating Hormone (TSH) 3.31 0.36-3.74 uIU/mL Free Thyroxine (T4) Direct 0.80 0.76-1.46 ng/dL Free Triiodothyronine (T3) pg/mL 2.48 2.18-3.98 pg/mL Urine Color LIGHT-YELLOW YELLOW Urine Appearance CLEAR CLEAR Urine pH 6.5 5.0-8.0 Urine Specific [place] 1.049 H 1.001-1.031 Urine Protein NEGATIVE NEGATIVE mg/dL Urine Glucose (UA) NEGATIVE NEGATIVE mg/dL Urine Ketones NEGATIVE NEGATIVE mg/dL Urine Occult Blood SMALL H NEGATIVE Urine Nitrate NEGATIVE NEGATIVE Urine Bilirubin NEGATIVE NEGATIVE mg/dL Urine Urobilinogen 0.2 0.2-1.0 mg/dL Urine Leukocyte Esterase NEGATIVE NEGATIVE Tosin/uL Urine RBC 26-50 H 0-1 /HPF Urine WBC 0-1 0-1 /HPF Urine Bacteria None None Seen /HPF Urine Opiates Screen POSITIVE H NEGATIVE Urine Barbiturates Screen NEGATIVE NEGATIVE Urine Phencyclidine Screen NEGATIVE NEGATIVE Urine Amphetamines Screen NEGATIVE NEGATIVE Urine Benzodiazepines Screen NEGATIVE NEGATIVE Urine Cocaine Screen POSITIVE H NEGATIVE Urine Marijuana (THC) Screen NEGATIVE NEGATIVE Influenza Type A Antigen Negative For Type A NEGATIVE Influenza Type B Antigen Negative For Type B NEGATIVE SARS-CoV-2 Antigen (Rapid) PRESUMPTIVE NEGATIVE NEGATIVE Test 02/22/25 10:55 02/22/25 10:00 Range/Units Blood Gas Specimen Type Arterial Arterial Blood pH 7.399 7.350-7.450 Arterial Blood Partial Pressure CO2 34 L 35-48 mmHg Arterial Blood Partial Pressure O2 63.5 L 83.0-108.0 mmHg Arterial Blood HCO3 20.3 L 21.0-28.0 mmol/L Arterial Blood Oxygen Saturation 92.5 L 94.0-98.0 % Arterial Blood Base Excess -3.6 L -2.0-3.0 mmol/L Blood Gas Temperature 37.0 35.5-37.0 CELSIUS Blood Gas Flow-by 4.00 0.00-15.00 L/min Blood Gas Vent Mode 4 L NC ROOM AIR FiO2 36.0 % Blood Gas Specimen Comment RR, D-Dimer Quantitative (PE/DVT) 299 0-500 ng/mL Hemoglobin A1c 5.6 4.0-6.0 % Estimated Average Glucose (eAG) 114 70-126 mg/dL Troponin I High Sensitivity 4 4-75 ng/L Current Medications Medications (Trade) Dose Ordered Sig/Arnie Route PRN Reason Start Time Stop Time Status Last Admin Dose Admin Acetaminophen (TYLenol 325MG TAB) 650 mg Q4H PRN PO MILD PAIN (1-3) 02/22/25 16:30 03/24/25 16:29 Acetaminophen (TYLenol 325MG TAB) 650 mg Q6H PRN PO MILD PAIN (1-3) 02/22/25 16:30 02/22/25 16:30 DC Acetaminophen (TYLenol 325MG TAB) 650 mg Q6H PRN PO TEMPERATURE GREATER THAN 101.5 02/22/25 16:30 03/24/25 16:29 Al Hydroxide/Mg Hydroxide (MAALox PLUS 30ML) 30 ml Q6H PRN PO INDIGESTION 02/22/25 16:30 03/24/25 16:29 Albuterol (DUOneb) 1 udvial [id number] IH 02/22/25 18:00 03/24/25 17:59 02/23/25 14:30 1 UDVIAL Albuterol Sulfate (Proventil 0.083% 2.5mg/3ml) 2.5 mg [id number] PRN IH RESPIRATORY SYMPTOMS 02/22/25 16:30 03/24/25 16:29 Dextrose (D50w) 50 ml AD PRN IV HYPOGLYCEMIA PROTOCOL 02/22/25 16:30 03/24/25 16:29 Diphenhydramine HCl (BENAdryl INJ) 25 mg Q6H PRN IV SEVERE ITCHING/RASH 02/22/25 16:30 03/24/25 16:29 Famotidine (Pepcid 20mg Vial) 20 mg BID PRN IV NAUSEA/VOMITING 02/22/25 16:30 03/24/25 16:29 Glucagon (Glucagon 1mg Kit) 1 mg AD PRN IM HYPOGLYCEMIA PROTOCOL 02/22/25 16:30 03/24/25 16:29 Guaifenesin/ Dextromethorphan (RobiTUSSin DM 200/20MG 10ML) 10 ml Q4H PRN PO COUGH 02/22/25 16:30 03/24/25 16:29 Heparin Sodium (Porcine) (HEParin 5,000 UNIT VIAL) 5,000 unit BID SQ 02/22/25 21:00 03/24/25 20:59 02/23/25 08:44 5,000 UNIT Hydralazine HCl (APRESOLine 20MG INJ) 10 mg Q6H PRN IV For:SBP above 160;DBP above 90 02/22/25 16:30 03/24/25 16:29 Ibuprofen (moTRIN) 600 mg Q8H PRN PO MODERATE PAIN (4-6) 02/22/25 16:30 02/23/25 14:33 DC Insulin Human Regular (humuLIN R 100 UNIT/ML 3ML) INSULIN SLIDING SCAL... ACHS SQ 02/22/25 16:30 03/24/25 16:29 Ketorolac Tromethamine (toRADol) 15 mg Q8H PRN IV MODERATE PAIN (4-6) 02/22/25 16:30 02/22/25 16:30 DC Ketorolac Tromethamine (toRADol) 30 mg Q6H PRN IM MODERATE PAIN (4-6) 02/23/25 18:00 02/28/25 17:59 Ketorolac Tromethamine (toRADol) 30 mg Q6H PRN IVP MODERATE PAIN (4-6) 02/23/25 18:00 02/23/25 14:39 DC Lactulose (Constulose 20gm/ 30ml Udcup) 20 gm BID PRN PO CONSTIPATION 02/22/25 16:30 03/24/25 16:29 Magnesium Sulfate 50 ml @ 0 mls/hr PROTOCOL PRN IV other 02/22/25 16:30 03/24/25 16:29 Morphine Sulfate (morPHINE 4MG SYG) 1 mg Q4H PRN IVP SEVERE PAIN (7-10) 02/22/25 16:30 03/01/25 16:29 02/23/25 15:03 1 MG Nitroglycerin (Nitrostat) 0.4 mg PROTOCOL PRN SL CHEST PAIN 02/22/25 16:30 03/24/25 16:29 Ondansetron HCl (zoFRAN 4MG INJ) 4 mg Q6H PRN IV NAUSEA/VOMITING 02/22/25 16:30 03/24/25 16:29 Oxycodone/ Acetaminophen (perCOCET) 1 tab Q6H PRN PO SEVERE PAIN (7-10) 02/22/25 16:30 02/22/25 16:30 DC Piperacillin Sod/ Tazobactam Sod 50 ml @ 12.5 mls/hr Q8H IV 02/22/25 17:00 02/23/25 11:01 DC 02/23/25 08:46 12.5 MLS/HR Potassium Chloride 100 ml @ 100 mls/hr AD PRN IV POTASSIUM PROTOCOL 02/22/25 16:30 03/24/25 16:29 Potassium Chloride (K-Dur/Klor-Con 20meq) 20 meq AD PRN PO POTASSIUM PROTOCOL 02/22/25 16:30 03/24/25 16:29 Potassium Chloride (KCl 10% Elixir 20meq/15ml) 20 meq AD PRN PO POTASSIUM PROTOCOL 02/22/25 16:30 03/24/25 16:29 Sodium Chloride 1,000 ml @ 100 mls/hr Q10H IV 02/22/25 16:30 03/24/25 16:29 02/23/25 12:45 100 MLS/HR Tamsulosin HCl (FloMAX) 0.4 mg DAILY PO 02/24/25 09:00 03/26/25 08:59 Zolpidem Tartrate (AmbIEN) 5 mg HS PRN PO INSOMNIA 02/22/25 16:30 03/24/25 16:29 DIAGNOSTICS / RADIOLOGY: [ ] [facility] [address] [place] [address] IMAGING REPORT Signed PATIENT: CAMERON GARCIA MR#: [id number] : 1975 SEX: M AGE: 49 LOCATION: [facility] ORDER 1002 STATUS: REG ER REPORT#: [id number] SERVICE 1000 REASON: left flank pain ORDERING PHYSICIAN: DEA STOREY MD PROCEDURE: ABD PELVWO - CT ABD/PEL WO CON RENAL/APPY EXAM: CT Abdomen and Pelvis Without IV contrast CLINICAL HISTORY: left flank pain TECHNIQUE: Axial computed tomography images of the abdomen and pelvis without intravenous contrast. CONTRAST: No IV contrast. COMPARISON: CT dated 02/17/2022. FINDINGS: LUNG BASES: The lung bases appear clear. No pleural effusions are seen. LIVER: Unremarkable. GALLBLADDER AND BILE DUCTS: The gallbladder appears within normal limits. No radioopaque gallstones are seen. No biliary ductal dilatation is evident. PANCREAS: Unremarkable. SPLEEN: Unremarkable. ADRENAL GLANDS: Unremarkable. KIDNEYS, URETERS, AND BLADDER: 4 mm stone in the urinary bladder ureterovesicular junction with mild left hydroureteronephrosis. This likely represents a recently passed stone. No right renal or ureteral stones. No right hydronephrosis. STOMACH AND BOWEL: No bowel obstruction or inflammation. APPENDIX: Normal appendix. PERITONEUM: No free fluid. No free air. LYMPH NODES: No lymphadenopathy is evident. REPRODUCTIVE: Unremarkable as visualized. VASCULATURE: No evidence of abdominal aortic aneurysm. BONES: No aggressive appearing osseous lesion. No acute osseous pathology evident. MISCELLANEOUS: Small fat-containing hernias in the bilateral inguinal regions and in the umbilical region. 3.3 x 2.4 cm soft tissue nodule in the left inguinal region with adjacent soft tissue stranding (for example image 120 series 2) which is of uncertain etiology. Correlation with physical exam is recommended if indicated, a contrast-enhanced exam can be performed. IMPRESSION: 1. 4 mm stone in the urinary bladder ureterovesicular junction with mild left hydroureteronephrosis. This likely represents a recently passed stone. 2. No right renal or ureteral stones. No right hydronephrosis. 3. No bowel obstruction or inflammation. Normal appendix. 4. Small fat-containing hernias in the bilateral inguinal regions and in the umbilical region. 5. 3.3 x 2.4 cm soft tissue nodule in the left inguinal region with adjacent soft tissue stranding which is of uncertain etiology but is grossly unchanged when compared with the prior noncontrast exam. Correlation with physical exam is recommended if indicated, a contrast-enhanced exam can be performed. /[place] DICTATED BY: JOAN LIMA MD DATE: 02/22/251313 ELECTRONICALLY SIGNED BY: JOAN LIMA MD DATE: 02/22/251313 [place] [id number] IMAGING REPORT Signed PATIENT: CAMERON GARCIA MR#: [id number] : 1975 SEX: M AGE: 49 LOCATION: [facility] ORDER 1002 STATUS: [facility] REPORT#: [id number] SERVICE 1000 REASON: sob ORDERING PHYSICIAN: DEA STOREY MD PROCEDURE: CXR1VW - CHEST 1VW EXAM: CR Chest, 1 View. CLINICAL HISTORY: sob COMPARISON: 01/14/22 11:09 EDT CR - CHEST 1VW FINDINGS: LUNGS: There is no mass, infiltrate, or acute pulmonary abnormality. PLEURAL SPACES: No evidence of pleural effusion or pneumothorax. MEDIASTINUM: Cardiac size and mediastinal contours within normal limits. BONES: No acute osseous abnormality. IMPRESSION: No acute cardiopulmonary pathology is evident. /[place] DICTATED BY: NEENA YU Jr., MD DATE: 02/22/25 1246 ELECTRONICALLY SIGNED BY: NEENA YU Jr., MD DATE: 02/22/25 1246 [facility] [address] [place] [id number] IMAGING REPORT Signed PATIENT: CAMERON GARCIA MR#: [id number] : 1975 SEX: M AGE: 49 LOCATION: [facility] ORDER 1039 STATUS: REG ER REPORT#: [id number] SERVICE 1038 REASON: AMS ORDERING PHYSICIAN: DEA STOREY MD PROCEDURE: HEAD WO - CT HEAD/BRAIN W/O CONTRAST EXAM: CT Head Without IV contrast. CLINICAL HISTORY: AMS TECHNIQUE: Axial computed tomography images of the head/brain without intravenous contrast. COMPARISON: None provided. FINDINGS: BRAIN: No acute bleed or infarct. 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 VENTRICLES: No hydrocephalus. ORBITS: The orbits are unremarkable. SINUSES AND MASTOIDS: The paranasal sinuses and mastoid air cells are clear. BONES: No fracture. SOFT TISSUES: Unremarkable. IMPRESSION: 1. No acute bleed or infarct. 2. 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 /[place] DICTATED BY: JOAN LIMA MD DATE: 02/22/25 1300 ELECTRONICALLY SIGNED BY: JOAN LIMA MD DATE: 02/22/25 1300 [facility] [address] [place] [id number] IMAGING REPORT Signed PATIENT: CAMERON GARCIA MR#: [id number] : 1975 SEX: M AGE: 49 LOCATION: [facility] ORDER 1045 STATUS: REG ER REPORT#: [id number] SERVICE 1044 REASON: sob, chest pain ORDERING PHYSICIAN: DEA STOREY MD PROCEDURE: PE CHEST - CT CHEST PE WWO EXAM: CTA Chest with and without Intravenous Contrast for PE evaluation CLINICAL HISTORY: sob, chest pain TECHNIQUE: Axial CTA images of the chest with and without intravenous contrast using a pulmonary embolism protocol. Multiplanar reconstructed images were created and reviewed. CONTRAST: None was administered without incident. COMPARISON: CR CHEST DATED 02/22 10:13 EDT FINDINGS: PULMONARY ARTERIES: No obvious filling defect within the pulmonary trunk or main pulmonary arteries. Please note that segmental and subsegmental arteries were not adequately opacified to evaluate patency. AORTA: The ascending aorta is seen arising from the right ventricular outflow tract (RVOT). There is no evidence for aneurysm or dissection of the thoracic aorta. LUNGS: Tiny fibro-atelectatic band is seen along the posterior segment of the right upper lobe. PLEURAL SPACES: No evidence of pneumothorax. No pleural effusion. 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 A few tiny specks of calcific foci are seen along the pericardium of the heart. Normal heart size. No significant pericardial effusion. LYMPH NODES: No lymphadenopathy is evident. BONES: No focal osseous abnormality or acute fracture. UPPER ABDOMEN: Images of the upper abdomen are unremarkable. 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 IMPRESSION: 1. No evidence of pulmonary embolism. The examination is limited as segmental and subsegmental arteries were not adequately opacified to evaluate patency. 2. 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 3. Persistent left superior vena cava. 4. Tiny fibro-atelectatic band in the right upper lobe. 5. Tiny pericardial calcifications. /[place] DICTATED BY: NEENA YU Jr., MD DATE: 02/22/25 5670 ELECTRONICALLY SIGNED BY: NEENA YU Jr., MD DATE: 02/22/25 6962 [place] [address] [place] [address] IMAGING REPORT Signed PATIENT: CAMERON GARCIA MR#: [id number] : 1975 SEX: M AGE: 49 LOCATION: [facility] ORDER 1644 STATUS: ADM IN REPORT#: [id number] SERVICE 0000 REASON: chf ORDERING PHYSICIAN: SYLVIA HERRON APRN PROCEDURE: ECHO CMP - ECHO 2-D COMPLETE APPROVED REPORT EXAM: Two-dimensional and M-mode echocardiogram with Doppler and color Doppler. Study Details: Hx: Transposition of the great arteries INDICATION ICD: Congestive heart failure 2D Dimensions RVDd 5.2 cm LVEF(%) 64.9 (>50%) LVED Vol(simp.) 66.0 mL IVSd 0.7 (0.7-1.1cm) FS(%) 35 % LVES Vol(simp.) 24.0 mL LVDd 3.9 (3.8-5.6cm) LA (2D) 3.5 (1.6-4.0cm) LVEF(%, simp.) 63 % PWd 0.7 (0.7-1.1cm) Ao Root(2D) 2.9 (2.0-3.7cm) IVSs 0.8 cm LVOT diam 2.2 (1.8-2.4cm) LVDs 2.5 (2.5-4.0cm) IVC diam 1.6 cm PWs 0.8 cm M-Mode Dimensions EPSS 0.3 cm LA (MM) 4.1 (1.6-4.0cm) Ao Root(MM) 2.2 (2.0-3.7cm) Mitral Valve MV E Vmax 94.9 cm/s DECEL Time 114 ms MV A Vmax 64.7 cm/s P 1/2 T 35 ms E/A ratio 1.5 MVA (PHT) 6.3 cm2 Pulmonary Valve PV Vmax 0.9 m/s PV Peak GR 3.6 mmHg Tricuspid Valve TR Vmax 1.9 m/s RAP (EST) 3 mmHg RVSP 16.7 mmHg TR Peak GR 13.7 mmHg Left Ventricle Left ventricular cavity size is normal. D shaped left ventricle suggest right ventricular volume/pressure overload. There is normal LV segmental wall motion. There is normal left ventricular wall thickness. LVEF is 60-65%. The LV diastolic function was unable to be assessed Right Ventricle The right ventricle is severely dilated. The right ventricular systolic function is normal. Atria The left atrium size is normal. The right atrium is moderately dilated. Aortic Valve The aortic valve is not well visualized. No aortic regurgitation is present. There is no aortic valvular stenosis. Mitral Valve The mitral valve is normal in structure. There is no mitral valve regurgitation noted. There is no mitral valve stenosis. Tricuspid Valve The tricuspid valve leaflets appear normal. There is trace tricuspid valve regurgitation noted. Pulmonic Valve Pulmonic valve is not well visualized. There is no pulmonic valvular regurgitation. Great Vessels The aortic root is normal in size. IVC is normal in size and collapses <50% with inspiration. Pericardium No pericardial effusion. Other Information Quality : Technically difficult study due to body habitus Conclusion Left ventricular cavity size is normal. D shaped left ventricle suggest right ventricular volume/pressure overload. LVEF is 60-65%. The LV diastolic function was unable to be assessed The right ventricle is severely dilated. The right ventricular systolic function is normal. The left atrium size is normal. The right atrium is moderately dilated. No valvular pathology. No pericardial effusion. 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 and pulmonary artery from the left ventricle outflow tract per CT chest POA Persistent left superior vena cava per CT chest POA Tiny fibro atelectasis in right upper lobe per CT chest POA Tiny pericardial calcifications per CT chest POA 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 -patient is receiving Flomax single dose for facilitating stone passage. -patient is receiving morphine and Toradol for pain. -urology was consulted and we will follow up with the recommendations. Acute on chronic hypoxic respiratory failure POA -patient has D-TGA, underwent cardiac surgeries on day 1 of and at 1 year. -since then patient is on home oxygen whenever required. -patient was saturating 92% at room air Zosyn antibiotic started for prophylaxis was stopped today as his lab workup showed no signs of infection. Normal saline at 100 mL/hour Hyper and hypoglycemia protocol Hypomagnesemia protocol Hypokalemia protocol Medication to be reconciled once available PRN home medications Blood culture shows no growth after 24 hours Urine culture shows no growth after 24 hours Cardiac diet ] ATTESTATION BY PHYSICIAN I have seen and examined the patient. I reviewed the documentation, medical decision making, and treatment plan as noted by the resident provider above. I agree with the findings and plan of care. TUSHAR HERNANDEZ MD, ADIL SHAH QUADRI MD Feb 23, 2025 16:16
[2025-02-23] MEDS ORDERED: IOHEXOL 350 MG/ML 100ML INFUS..BTL IV ONE (16:28)
[2025-02-24 03:28] VITALS: BP 112/67; PULSE 62; RESP 19; TEMP 97.8
[2025-02-24 04:50] LABS: NUCLEATED RED BLOOD CELLS 0.0 % (0.0-0.19); PLATELET COUNT (AUTO) 194.0 K/uL (130-400); RED BLOOD CELL COUNT(AUTO) 4.47 MIL/uL (4.50-6.20); RED CELL DISTRIBUTION WIDTH 12.4 % (11.0-15.5); WHITE BLOOD COUNT (AUTO) 6.1 K/uL (4.8-10.8)
[2025-02-24 05:17] LABS: CREATININE 0.9 mg/dL (0.5-1.3); GLOMERULAR FILTR. RATE CALC 104.0 mL/min (>90); GLUCOSE,RANDOM 101.0 mg/dL (70-105); SODIUM SERUM 141.0 mmol/L (136-145); UREA NITROGEN, BLOOD 17.0 mg/dL (7-18)
[2025-02-24 06:19] VITALS: PULSE 55; RESP 18
[2025-02-24 06:22] VITALS: PULSE 55; RESP 18; O2SAT 92
[2025-02-24 08:00] VITALS: BP 101/68; PULSE 58; RESP 18; TEMP 98.1
--- NOTE | 2025-02-24 09:44 | NUR ---
LEFT AMA PATIENT LEFT AMA. PATIENT STATED WE WERE NOT DOING ANYTHING FOR HIM AND HE STILL FEELS THE SAME. I EXPLAINED THE IMPORTANCE OF STAYING AND DOCTOR WILL COME BY AND SEE HIM TODAY. PATIENT STATED THEY UNDERSTAND BUT STILL WANTED TO LEAVE AMA. CHARGE NURSE AND PRIMARY DOCTOR NOTIFIED. ASSESSMENT NOT ABLE TO BE DONE DUE TO PATIENT LEAVING AMA .
--- NOTE | 2025-02-24 12:43 | CONS ---
REQUESTING PHYSICIAN: Jaxson Taylor MD. REASON FOR CONSULTATION: Evaluation of left flank pain. HISTORY OF PRESENT ILLNESS: A 49-year-old male presents to the hospital with left flank pain of 2 days' duration radiating to his groin. The patient is a cocaine user. He has a medical history consistent with congestive heart failure, hyperlipidemia, and heart disease. He has had kidney stones in the past. He had a CT scan done in the Emergency Room yesterday that showed mild left hydronephrosis with a ureteric stone probably in the intramural portion of the ureter or actually in the bladder already, and because of his flank pain, which was intractable, a consult with urology requested. The patient, under my instruction then underwent an IVP with tomogram this evening. Official reading is pending; however, by my reading, I see no obstruction on the left hand side whatsoever. I do not see a stone in the bladder either. The patient encountered lying in bed. Requesting additional pain medication. ALLERGIES: Recorded as none. MEDICATIONS: His current medications include p.r.n. Dilaudid with Toradol as well as 1 mg of morphine p.r.n. He has also been started on IV antibiotics, specifically Rocephin. PAST MEDICAL HISTORY: The patient's past medical history is significant coronary artery disease, congestive heart failure, lung disease as well as kidney stones. PAST SURGICAL HISTORY: Includes nephrostomy tube placement, open heart surgery, ____ of kidney stones. 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 He does use illicit drugs. FAMILY HISTORY: Negative for kidney stones. REVIEW OF SYSTEMS: He has no shortness of breath or chest pain. His appetite is poor. He has no nausea or vomiting. No constipation or diarrhea. No headaches, dizziness, or nosebleeds. No joint pain, joint swelling, limitations of movement, night sweats, fever, chills, or skin rash. PHYSICAL EXAMINATION: GENERAL: Well-developed male, in no distress. VITAL SIGNS: Temperature is 98. The patient's blood pressure is 110/80. NECK: Without adenopathy or supraclavicular masses palpable. LUNGS: Lung baker are clear to auscultation. HEART: Heart sounds are best heard in the fifth intercostal space, midclavicular line. ABDOMEN: Obese, soft, nontender. No masses. BACK: No CVA tenderness. GENITALIA AND RECTAL: Deferred. LABORATORY DATA: Shows a white count of 7.6, hematocrit of 48, platelet count of 244. The patient's sodium is 143, potassium is 3.7, BUN and creatinine are 9 and 0.8. Urinalysis yesterday was pending. IMAGING STUDIES: The patient's imaging studies reviewed today include a CT scan of the abdomen and pelvis that shows a possible small stone in the bladder with minimal hydronephrosis and hydroureter on the left-hand side. There is also a 3 mm stable groin induration on the left side. IVP without radiology report appears to show no obstruction whatsoever with delicate calyces bilaterally. No hydronephrosis anymore and delineation of the ureter all the way down into the bladder without obstruction. The IVP interpretation is pending official corroboration by radiologist. ASSESSMENT: 1. Left renal colic, improved. 2. Most likely passed 4 mm small stone from the UVJ. 3. Soft tissue nodule, left inguinal region. 4. Illicit drug usage. RECOMMENDATIONS: 1. Strain all urine. 2. Medical expulsive therapy with Flomax 0.4 mg once a day. 3. Follow up with his PCP as an outpatient for referral to Urology as needed as an outpatient. 4. At this time, no urological or surgical intervention is planned. Thank you for the opportunity for providing consultation on your patient. TID: [id number] RECEIPT: [id number]
--- NOTE | 2025-02-24 16:30 | DS ---
Discharge Summary Hospital Course Summary: Patient is 49-year-old male with a past medical history of Coronary Artery Disease, CHF, hyperlipidemia, heart disease, kidney stones, respiratory distress needing O2 at home, who came to emergency department with a complaint of left flank pain and shortness of breaths. Patient stated that since yesterday afternoon he has been having left back pain that is radiating to his left groin. Patient stated that previously he already had a kidney stone and he had a nephrostomy tube placement with a stent but on right side. He also stated that this is exactly same pain as he experienced few years ago. Patient also admitted that he took some cocaine last night. At this moment patient is on 2 L nasal cannula. When asked if patient has any oxygen at home, he stated that at the age of and [age] year he were two heart surgeries and since then he has been needing an oxygen. Oxygen is as needed and he is trying to wean himself off went only possible. Most recent vital signs temperature 98.4 pulse 70 respirations 16 blood pressure 86/56 patient is on 2 L nasal cannula satting 94%.] Most recent labs WBC 7.6 hemoglobin 16.4 hematocrit 48 platelets 244. Sodium 143 potassium 3.7 CO2 30 BUN nine creatinine 0.8 GFR 108 lactic 1.2 bilirubin 0.1 AST 14 ALT 21 CK 73 troponin negative BNP 28 CT abdomen /pelvis showed 4 mm stone in the urinary bladder ureterovesicular junction with a mild left hydroureteronephrosis. Likely represent recent passed stone. No right renal or ureteral stones. No right hydronephrosis. No bowel obstruction. Small fat containing hernias in bilateral inguinal regions and in the umbilical region. 8.3 x 2.4 cm soft tissue nodule in the left inguinal region with adjacent soft tissue stranding which is of uncertain etiology but is grossly unchanged two with a compare with the prior noncontrast exam. Chest x- ray negative. 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 Chest CT showed no evidence of PE. Persistent left superior vena cava. Tiny fibro atelectatic band in the right upper lobe. Tiny pericardial calcifications. 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 Patient will be admitted under hospitalist care for further evaluation/recommen dation. Urology consultation revealed left renal colic, improved and most likely passed 4 mm small stone from UVJ. No urgent surgical or urological intervention is planned at this time. The patient left the hospital against medical advice (AMA) in the morning prior to physician rounds. He reported that his pain had improved since admission but stated that it was not adequately controlled to his satisfaction. At the time of departure, vital signs were stable. He did not wait for intravenous pyelogram results that are pending at that time. The nursing staff discussed 30s, benefits, and potential complications of leaving AMA with the patient, including possible worsening of his conditions, readmissions, or other health consequences. The patient verbalized understanding of this risks and choose to leave voluntarily. The attending physician and the care team were notified of the patient decision to leave AMA Analysis Evaluator(s): CONSULTATION REPORT Name: CAMERON GARCIA Acct: [id number] MR: [id number] : 1975 Admit Date: 02/22/25 TREVOR MALDONADO MD [place] [id number] [place] [id number] REQUESTING PHYSICIAN: Jaxson Taylor MD. REASON FOR CONSULTATION: Evaluation of left flank pain. HISTORY OF PRESENT ILLNESS: A 49-year-old male presents to the hospital with left flank pain of 2 days' duration radiating to his groin. The patient is a cocaine user. He has a medical history consistent with congestive heart failure, hyperlipidemia, and heart disease. He has had kidney stones in the past. He had a CT scan done in the Emergency Room yesterday that showed mild left hydronephrosis with a ureteric stone probably in the intramural portion of the ureter or actually in the bladder already, and because of his flank pain, which was intractable, a consult with urology requested. The patient, under my instruction then underwent an IVP with tomogram this evening. Official reading is pending; however, by my reading, I see no obstruction on the left hand side whatsoever. I do not see a stone in the bladder either. The patient encountered lying in bed. Requesting additional pain medication. ALLERGIES: Recorded as none. MEDICATIONS: His current medications include p.r.n. Dilaudid with Toradol as well as 1 mg of morphine p.r.n. He has also been started on IV antibiotics, specifically Rocephin. PAST MEDICAL HISTORY: The patient's past medical history is significant coronary artery disease, congestive heart failure, lung disease as well as kidney stones. PAST SURGICAL HISTORY: Includes nephrostomy tube placement, open heart surgery, ____ of kidney stones. 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 He does use illicit drugs. FAMILY HISTORY: Negative for kidney stones. REVIEW OF SYSTEMS: He has no shortness of breath or chest pain. His appetite is poor. He has no nausea or vomiting. No constipation or diarrhea. No headaches, dizziness, or nosebleeds. No joint pain, joint swelling, limitations of movement, night sweats, fever, chills, or skin rash. PHYSICAL EXAMINATION: GENERAL: Well-developed male, in no distress. VITAL SIGNS: Temperature is 98. The patient's blood pressure is 110/80. NECK: Without adenopathy or supraclavicular masses palpable. LUNGS: Lung baker are clear to auscultation. HEART: Heart sounds are best heard in the fifth intercostal space, midclavicular line. ABDOMEN: Obese, soft, nontender. No masses. BACK: No CVA tenderness. GENITALIA AND RECTAL: Deferred. LABORATORY DATA: Shows a white count of 7.6, hematocrit of 48, platelet count of 244. The patient's sodium is 143, potassium is 3.7, BUN and creatinine are 9 and 0.8. Urinalysis yesterday was pending. IMAGING STUDIES: The patient's imaging studies reviewed today include a CT scan of the abdomen and pelvis that shows a possible small stone in the bladder with minimal hydronephrosis and hydroureter on the left-hand side. There is also a 3 mm stable groin induration on the left side. IVP without radiology report appears to show no obstruction whatsoever with delicate calyces bilaterally. No hydronephrosis anymore and delineation of the ureter all the way down into the bladder without obstruction. The IVP interpretation is pending official corroboration by radiologist. ASSESSMENT: 1. Left renal colic, improved. 2. Most likely passed 4 mm small stone from the UVJ. 3. Soft tissue nodule, left inguinal region. 4. Illicit drug usage. RECOMMENDATIONS: 1. Strain all urine. 2. Medical expulsive therapy with Flomax 0.4 mg once a day. 3. Follow up with his PCP as an outpatient for referral to Urology as needed as an outpatient. 4. At this time, no urological or surgical intervention is planned. Thank you for the opportunity for providing consultation on your patient. TID: [id number] RECEIPT: [id number] Electronically Signed by: Electronically Co-Signed by: Procedure(s): [facility] [address] [place] [address] IMAGING REPORT Signed PATIENT: CAMERON GARCIA MR#: [id number] : 1975 SEX: M AGE: 49 LOCATION: [facility] ORDER 1002 STATUS: REG REPORT#: [id number] SERVICE 1000 REASON: left flank pain ORDERING PHYSICIAN: DEA STOREY MD PROCEDURE: ABD PELVWO - CT ABD/PEL WO CON RENAL/APPY EXAM: CT Abdomen and Pelvis Without IV contrast CLINICAL HISTORY: left flank pain TECHNIQUE: Axial computed tomography images of the abdomen and pelvis without intravenous contrast. CONTRAST: No IV contrast. COMPARISON: CT dated 02/17/2022. FINDINGS: LUNG BASES: The lung bases appear clear. No pleural effusions are seen. LIVER: Unremarkable. GALLBLADDER AND BILE DUCTS: The gallbladder appears within normal limits. No radioopaque gallstones are seen. No biliary ductal dilatation is evident. PANCREAS: Unremarkable. SPLEEN: Unremarkable. ADRENAL GLANDS: Unremarkable. KIDNEYS, URETERS, AND BLADDER: 4 mm stone in the urinary bladder ureterovesicular junction with mild left hydroureteronephrosis. This likely represents a recently passed stone. No right renal or ureteral stones. No right hydronephrosis. STOMACH AND BOWEL: No bowel obstruction or inflammation. APPENDIX: Normal appendix. PERITONEUM: No free fluid. No free air. LYMPH NODES: No lymphadenopathy is evident. REPRODUCTIVE: Unremarkable as visualized. VASCULATURE: No evidence of abdominal aortic aneurysm. BONES: No aggressive appearing osseous lesion. No acute osseous pathology evident. MISCELLANEOUS: Small fat-containing hernias in the bilateral inguinal regions and in the umbilical region. 3.3 x 2.4 cm soft tissue nodule in the left inguinal region with adjacent soft tissue stranding (for example image 120 series 2) which is of uncertain etiology. Correlation with physical exam is recommended if indicated, a contrast-enhanced exam can be performed. IMPRESSION: 1. 4 mm stone in the urinary bladder ureterovesicular junction with mild left hydroureteronephrosis. This likely represents a recently passed stone. 2. No right renal or ureteral stones. No right hydronephrosis. 3. No bowel obstruction or inflammation. Normal appendix. 4. Small fat-containing hernias in the bilateral inguinal regions and in the umbilical region. 5. 3.3 x 2.4 cm soft tissue nodule in the left inguinal region with adjacent soft tissue stranding which is of uncertain etiology but is grossly unchanged when compared with the prior noncontrast exam. Correlation with physical exam is recommended if indicated, a contrast-enhanced exam can be performed. /[place] DICTATED BY: JOAN LIMA MD DATE: 02/22/251313 ELECTRONICALLY SIGNED BY: JOAN LIMA MD DATE: 02/22/251313 [place] [id number] IMAGING REPORT Signed PATIENT: CAMERON GARCIA MR#: [id number] : 1975 SEX: M AGE: 49 LOCATION: [facility] ORDER 1002 STATUS: REG ER [facility]OSPITAL REPORT#: [id number] SERVICE 1000 REASON: sob ORDERING PHYSICIAN: DEA STOREY MD PROCEDURE: CXR1VW - CHEST 1VW EXAM: CR Chest, 1 View. CLINICAL HISTORY: sob COMPARISON: 01/14/22 11:09 EDT CR - CHEST 1VW FINDINGS: LUNGS: There is no mass, infiltrate, or acute pulmonary abnormality. PLEURAL SPACES: No evidence of pleural effusion or pneumothorax. MEDIASTINUM: Cardiac size and mediastinal contours within normal limits. BONES: No acute osseous abnormality. IMPRESSION: No acute cardiopulmonary pathology is evident. /[place] DICTATED BY: NEENA YU Jr., MD DATE: 02/22/25 1246 ELECTRONICALLY SIGNED BY: NEENA YU Jr., MD DATE: 02/22/25 1246 [facility] [address] [place] [id number] IMAGING REPORT Signed PATIENT: CAMERON GARCIA MR#: [id number] : 1975 SEX: M AGE: 49 LOCATION: [facility] ORDER 1039 STATUS: REG ER REPORT#: [id number] SERVICE 1038 REASON: AMS ORDERING PHYSICIAN: DEA STOREY MD PROCEDURE: HEAD WO - CT HEAD/BRAIN W/O CONTRAST EXAM: CT Head Without IV contrast. CLINICAL HISTORY: AMS TECHNIQUE: Axial computed tomography images of the head/brain without intravenous contrast. COMPARISON: None provided. FINDINGS: BRAIN: No acute bleed or infarct. 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 VENTRICLES: No hydrocephalus. ORBITS: The orbits are unremarkable. SINUSES AND MASTOIDS: The paranasal sinuses and mastoid air cells are clear. BONES: No fracture. SOFT TISSUES: Unremarkable. IMPRESSION: 1. No acute bleed or infarct. 2. 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 /[place] DICTATED BY: JOAN LIMA MD DATE: 02/22/25 1300 ELECTRONICALLY SIGNED BY: JOAN LIMA MD DATE: 02/22/25 1300 [facility] [address] [place] [id number] IMAGING REPORT Signed PATIENT: CAMERON GARCIA MR#: [id number] : 1975 SEX: M AGE: 49 LOCATION: [facility] ORDER 1045 STATUS: REG ER REPORT#: [id number] SERVICE 1044 REASON: sob, chest pain ORDERING PHYSICIAN: DEA STOREY MD PROCEDURE: PE CHEST - CT CHEST PE WWO EXAM: CTA Chest with and without Intravenous Contrast for PE evaluation CLINICAL HISTORY: sob, chest pain TECHNIQUE: Axial CTA images of the chest with and without intravenous contrast using a pulmonary embolism protocol. Multiplanar reconstructed images were created and reviewed. CONTRAST: None was administered without incident. COMPARISON: CR CHEST DATED 02/22 10:13 EDT FINDINGS: PULMONARY ARTERIES: No obvious filling defect within the pulmonary trunk or main pulmonary arteries. Please note that segmental and subsegmental arteries were not adequately opacified to evaluate patency. AORTA: The ascending aorta is seen arising from the right ventricular outflow tract (RVOT). There is no evidence for aneurysm or dissection of the thoracic aorta. LUNGS: Tiny fibro-atelectatic band is seen along the posterior segment of the right upper lobe. PLEURAL SPACES: No evidence of pneumothorax. No pleural effusion. 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 A few tiny specks of calcific foci are seen along the pericardium of the heart. Normal heart size. No significant pericardial effusion. LYMPH NODES: No lymphadenopathy is evident. BONES: No focal osseous abnormality or acute fracture. UPPER ABDOMEN: Images of the upper abdomen are unremarkable. 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 IMPRESSION: 1. No evidence of pulmonary embolism. The examination is limited as segmental and subsegmental arteries were not adequately opacified to evaluate patency. 2. 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 3. Persistent left superior vena cava. 4. Tiny fibro-atelectatic band in the right upper lobe. 5. Tiny pericardial calcifications. /[place] DICTATED BY: NEENA YU Jr., MD DATE: 02/22/25 9245 ELECTRONICALLY SIGNED BY: NEENA YU Jr., MD DATE: 02/22/25 1505 [place] [address] [place] [id number] IMAGING REPORT Signed PATIENT: CAMERON GARCIA MR#: [id number] : 1975 SEX: M AGE: 49 LOCATION: [facility] ORDER 1644 STATUS: ADM IN REPORT#: [id number] SERVICE 0000 REASON: chf ORDERING PHYSICIAN: SYLVIA HERRON APRN PROCEDURE: ECHO CMP - ECHO 2-D COMPLETE APPROVED REPORT EXAM: Two-dimensional and M-mode echocardiogram with Doppler and color Doppler. Study Details: Hx: Transposition of the great arteries INDICATION ICD: Congestive heart failure 2D Dimensions RVDd 5.2 cm LVEF(%) 64.9 (>50%) LVED Vol(simp.) 66.0 mL IVSd 0.7 (0.7-1.1cm) FS(%) 35 % LVES Vol(simp.) 24.0 mL LVDd 3.9 (3.8-5.6cm) LA (2D) 3.5 (1.6-4.0cm) LVEF(%, simp.) 63 % PWd 0.7 (0.7-1.1cm) Ao Root(2D) 2.9 (2.0-3.7cm) IVSs 0.8 cm LVOT diam 2.2 (1.8-2.4cm) LVDs 2.5 (2.5-4.0cm) IVC diam 1.6 cm PWs 0.8 cm M-Mode Dimensions EPSS 0.3 cm LA (MM) 4.1 (1.6-4.0cm) Ao Root(MM) 2.2 (2.0-3.7cm) Mitral Valve MV E Vmax 94.9 cm/s DECEL Time 114 ms MV A Vmax 64.7 cm/s P 1/2 T 35 ms E/A ratio 1.5 MVA (PHT) 6.3 cm2 Pulmonary Valve PV Vmax 0.9 m/s PV Peak GR 3.6 mmHg Tricuspid Valve TR Vmax 1.9 m/s RAP (EST) 3 mmHg RVSP 16.7 mmHg TR Peak GR 13.7 mmHg Left Ventricle Left ventricular cavity size is normal. D shaped left ventricle suggest right ventricular volume/pressure overload. There is normal LV segmental wall motion. There is normal left ventricular wall thickness. LVEF is 60-65%. The LV diastolic function was unable to be assessed Right Ventricle The right ventricle is severely dilated. The right ventricular systolic function is normal. Atria The left atrium size is normal. The right atrium is moderately dilated. Aortic Valve The aortic valve is not well visualized. No aortic regurgitation is present. There is no aortic valvular stenosis. Mitral Valve The mitral valve is normal in structure. There is no mitral valve regurgitation noted. There is no mitral valve stenosis. Tricuspid Valve The tricuspid valve leaflets appear normal. There is trace tricuspid valve regurgitation noted. Pulmonic Valve Pulmonic valve is not well visualized. There is no pulmonic valvular regurgitation. Great Vessels The aortic root is normal in size. IVC is normal in size and collapses <50% with inspiration. Pericardium No pericardial effusion. Other Information Quality : Technically difficult study due to body habitus Conclusion Left ventricular cavity size is normal. D shaped left ventricle suggest right ventricular volume/pressure overload. LVEF is 60-65%. The LV diastolic function was unable to be assessed The right ventricle is severely dilated. The right ventricular systolic function is normal. The left atrium size is normal. The right atrium is moderately dilated. No valvular pathology. No pericardial effusion. DICTATED BY: ROB SIMMS MD DATE: 02/23/25 0850 ELECTRONICALLY SIGNED BY: ROB SIMMS MD DATE: 02/23/25 1227 [place] [address] IMAGING REPORT Signed PATIENT: CAMERON GARCIA MR#: [id number] : 1975 SEX: M AGE: 49 LOCATION: [facility] ORDER 11 STATUS: DIS IN REPORT#: [id number] SERVICE 09 REASON: hydronephrosis ORDERING PHYSICIAN: TREVOR MALDONADO MD PROCEDURE: IVP - IVP W/WO TOMOGRAMS EXAM: IVP tomograms, multiple views. CLINICAL HISTORY: Hydronephrosis. COMPARISON: Compared to the prior IVP tomograms dated January 16, 2022 FINDINGS: A moderate amount of fecal residue in the large bowel loops probably changes of constipation. No abnormal radiopacities in the region of the kidney, along the course of the ureter, or the urinary bladder. Normal bilateral nephrograms are identified. Limited visualization of the right due to overlying bowel gas. No definitive cortical scar or filling defect in the renal pelvis. Normal contrast opacification of the bilateral ureters without any hydronephrosis or stricture. Nonobstructed nonspecific bowel gas pattern. No free air is evident. No abnormal calcification. No aggressive appearing osseous lesion. IMPRESSION: No acute process. A moderate amount of fecal residue in the large bowel loops probably changes of constipation. No abnormal radiopacities in the region of the kidney, along the course of the ureter, or the urinary bladder. No evidence of hydronephrosis. Normal bilateral nephrograms are identified. Limited visualization of the right due to overlying bowel gas. No definitive cortical scar or filling defect in the renal pelvis. Normal contrast opacification of the bilateral ureters without any hydronephrosis or stricture. Nonobstructed nonspecific bowel gas pattern. Compared to the prior tomograms, previously identified calculus in the right kidney is not well appreciated in this current study. No other significant interval change. 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 and pulmonary artery from the left ventricle outflow tract per CT chest POA Persistent left superior vena cava per CT chest POA Tiny fibro atelectasis in right upper lobe per CT chest POA Tiny pericardial calcifications per CT chest POA 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 I reviewed the documentation, medical decision making, and treatment plan as noted by the resident provider above. I agree with the findings and plan of care. TUSHAR HERNANDEZ MD, ADIL SHAH QUADRI MD Feb 24, 2025 16:30
--- NOTE | 2025-02-25 05:46 | HMCIMG ---
EXAM: IVP tomograms, multiple views. CLINICAL HISTORY: Hydronephrosis. COMPARISON: Compared to the prior IVP tomograms dated January 16, 2022 FINDINGS: A moderate amount of fecal residue in the large bowel loops probably changes of constipation. No abnormal radiopacities in the region of the kidney, along the course of the ureter, or the urinary bladder. Normal bilateral nephrograms are identified. Limited visualization of the right due to overlying bowel gas. No definitive cortical scar or filling defect in the renal pelvis. Normal contrast opacification of the bilateral ureters without any hydronephrosis or stricture. Nonobstructed nonspecific bowel gas pattern. No free air is evident. No abnormal calcification. No aggressive appearing osseous lesion. IMPRESSION: No acute process. A moderate amount of fecal residue in the large bowel loops probably changes of constipation. No abnormal radiopacities in the region of the kidney, along the course of the ureter, or the urinary bladder. No evidence of hydronephrosis. Normal bilateral nephrograms are identified. Limited visualization of the right due to overlying bowel gas. No definitive cortical scar or filling defect in the renal pelvis. Normal contrast opacification of the bilateral ureters without any hydronephrosis or stricture. Nonobstructed nonspecific bowel gas pattern. Compared to the prior tomograms, previously identified calculus in the right kidney is not well appreciated in this current study. No other significant interval change. /[place]
== END 2025-02-24 09:50 | disposition left against medical advice (07) | DRG 465 ==
LOC: EDH 09:40 → EDHIP 09:42 → 3BH 20:50
PROVIDERS: ADMIT Internal Medicine; ATTEND Internal Medicine
DX: N13.2 Hydronephrosis with renal and ureteral calculous obstruction (principal); J96.21 Acute and chronic respiratory failure with hypoxia; I50.41 Acute combined systolic (congestive) and diastolic (congestive) heart failure; I95.9 Hypotension, unspecified; I31.1 Chronic constrictive pericarditis; I25.10 Atherosclerotic heart disease of native coronary artery without angina pectoris; Z95.1 Presence of aortocoronary bypass graft; E78.5 Hyperlipidemia, unspecified; F14.90 Cocaine use, unspecified, uncomplicated; F17.290 Nicotine dependence, other tobacco product, uncomplicated; Z82.49 Family history of ischemic heart disease and other diseases of the circulatory system; Z86.73 Personal history of transient ischemic attack (TIA), and cerebral infarction without residual deficits; Z87.442 Personal history of urinary calculi; Z93.6 Other artificial openings of urinary tract status; N21.0 Calculus in bladder
CPT/HCPCS: 36415; 36600; 70450; 71045; 71270; 74176; 74400; 80048; 80076; 80305; 81001; 82140; 82150; 82550; 82607; 82803; 82948; 83036; 83605; 83690; 83735; 83880; 84145; 84439; 84443; 84481; 84484; 85025; 85027; 85378; 87040; 87086; 87426; 87804; 93005; 93306; 94640; 94664; 96361; 96372; 96374; 99285; G0378; J1644; J1885; J2270; J2405; J2543; J7030; Q9967